=== PATIENT | female | born 1940 | race Caucasian/White ===

== ENCOUNTER → 2016-06-18 | Outpatient (CLI) | payer MEDICARE ==
[2016-06-18 10:39] LABS: Blood Urea Nitrogen 19 mg/dL (7-17); Non-African American GFR(MDRD) 56 (>60 ml/min/1.73 sqM)
--- NOTE | 2016-06-18 13:52 | MR ---
EXAMINATION TYPE: MR brain wo/w con DATE OF EXAM: 06/18/2016 11:23 AM COMPARISON: 07/07/2014 HISTORY: 76-year-old female disorder of binocular vision. TECHNIQUE: Multiplanar, multisequence images of the brain and brainstem were acquired before and aft er administration of 20 mL IV MultiHance. Diffusion weighted imaging is performed. FINDINGS: There is extensive artifact relating to the patient's aneurysm clipping with artifact centered in the region of the left upper [place]. Allowing for this artifact, no diffusion abnormality is identif ied. No evident mass, mass effect, midline shift, herniation, effacement of basal cisterns, or extra-axial fluid collection. The ventricles and sulci are age appropriate with mild generalized supratentorial volume loss. T2/FLAIR weighted sequences show moderate scattered bright white matter change in the subcortical and deep white matter of both cerebral hemispheres. No interval progression is seen. There is continued encephalomalacia and gliosis along the anterior left frontal lobe suggesting sequela of prior vascula r or traumatic insult. Midline structures demonstrate normal morphology. The craniocervical junction is normal. Post contrast images demonstrate no evidence of pathologic enhancement. Dural venous sinuses are pat ent. The visualized sinuses are clear and the globes are intact. IMPRESSION: 1. Prominent artifacts related to patient's prior aneurysm clipping in the region of the left [place]. 2. Mild age-related atrophy and stable chronic T2 bright white matter changes with moderate overall b urden likely relating to chronic small vessel ischemic disease. 3. Area of encephalomalacia and gliosis in the anterior left frontal lobe suggest prior vascular or t raumatic insult and is also unchanged. 4. No acute intracranial abnormality seen.
== END | disposition home or self-care (01) ==
LOC: RADMRIMAIN 09:42
PROVIDERS: ATTEND Family Medicine
DX: G31.1 Senile degeneration of brain, not elsewhere classified (principal); R90.82 White matter disease, unspecified; G93.89 Other specified disorders of brain
CPT/HCPCS: 82565; 84520; 70553; 36415; A9577

== ENCOUNTER → 2017-09-17 | Outpatient (CLI) | payer MEDICARE ==
--- NOTE | 2017-09-17 11:33 | CT ---
EXAMINATION TYPE: CT chest wo con DATE OF EXAM: 09/17/2017 COMPARISON: 03/05/2017 and 02/06/2013 HISTORY: Pneumonia. Shortness of breath. CT DLP: 854.0 mGycm. Automated Exposure Control for Dose Reduction was Utilized. TECHNIQUE: CT scan of the thorax is performed without IV contrast per high-resolution chest CT lyle col in supine and prone positions. FINDINGS: LUNGS: There is mild paraseptal and centrilobular emphysematous change most exaggerated in the lung a pices. There is interlobular septal thickening in a peripheral basilar distribution and early honeyco mbing posteriorly indicative of mild pulmonary fibrosis. There is no significant progression in degre e fibrosis from the exam of 02/06/2013. Focal consolidation is seen. Dependent shifting atelectasis is present in supine and prone imaging. N o focal mass is identified however evaluation for pulmonary nodules is limited on this high resolutio n. No bronchiectasis or peribronchial cuffing. MEDIASTINUM: Ascending thoracic aorta is mildly enlarged measuring 4.0 cm. Severe three-vessel christianson ry atheromatous plaquing is noted. Moderate thoracic atheromatous changes are identified. Lack of IV contrast is noted to limit evaluation for mediastinal and especially hilar adenopathy. There are no d efinitive greater than 1 cm hilar or mediastinal lymph nodes. No cardiomegaly or pericardial effusi on is seen. OTHER: Cholelithiasis is incidentally noted. Left mastectomy has been performed without reconstructio n. Benign dystrophic right breast calcification is incidentally seen. Moderate multilevel degenerativ e change of the thoracic spine is present. IMPRESSION: 1. Interstitial lung disease, pulmonary emphysema, and early fibrosis without significant progression from the prior of 2012. No new focal consolidation to suggest pneumonia. No new pulmonary mass. 2. Stable ascending thoracic aorta mild aneurysmal dilatation measuring 4.0 cm. 3. Extensive three-vessel coronary artery calcifications, a marker for coronary disease.
== END | disposition home or self-care (01) ==
LOC: RADCTMAIN 10:46
PROVIDERS: ATTEND Internal Medicine
DX: J84.9 Interstitial pulmonary disease, unspecified (principal); J43.9 Emphysema, unspecified; J84.10 Pulmonary fibrosis, unspecified; I71.2 Thoracic aortic aneurysm, without rupture; I25.10 Atherosclerotic heart disease of native coronary artery without angina pectoris
CPT/HCPCS: 71250

== ENCOUNTER 2021-02-26 10:55 | Emergency (ER) | payer MEDICARE ==
[2021-02-26 11:03] VITALS: RESP 18
[2021-02-26] MEDS ORDERED: SODIUM CHLORIDE 0.9% 1,000 ML IV STA (11:16)
[2021-02-26] MEDS ORDERED: SODIUM CHLORIDE 0.9% 500 ML 500 ML IV STA (11:16)
--- NOTE | 2021-02-26 11:57 | XR ---
EXAMINATION TYPE: XR chest 2V DATE OF EXAM: 02/26/2021 COMPARISON: 03/27/2019 TECHNIQUE: PA and lateral views submitted. HISTORY: Weakness FINDINGS: The lungs are clear and there is no pneumothorax, pleural effusion, or focal pneumonia. Coarsened in terstitium suggests chronic interstitial lung disease. Arthropathy of the shoulders. Biapical pleural thickening. Hypertrophic and degenerative changes of the spine. Hyperinflation suggests COPD. Mild e ctasia of the aortic arch with atherosclerotic changes. IMPRESSION: 1. Chronic appearing interstitial changes correlate for chronic interstitial lung disease such as pul monary fibrosis.
[2021-02-26 12:23] LABS: HCT 46.2 % (34.0-46.0); HGB 15.6 gm/dL (11.4-16.0); MCH 30.5 pg (25.0-35.0); MCHC 33.7 g/dL (31.0-37.0); MCV 90.6 fL (80.0-100.0); Mean Platelet Volume 9.8; Platelet Count 232 k/uL (150-450); RDW 13.6 % (11.5-15.5)
[2021-02-26 12:30] LABS: INR 1.2 (<1.2); Partial Thromboplastin Time 23.5 sec (22.0-30.0); Prothrombin Time 12.1 sec (9.0-12.0)
[2021-02-26 12:58] LABS: Large Platelets Present
[2021-02-26 13:24] LABS: Eosinophils # (M) 0.13 k/uL (0-0.7); Monocytes # (M) 0.38 k/uL (0-1.0); Neutrophils % (M) 63 %; Nucleated Red Blood Cells 0 /100 WBC (0-0); Total Cells Counted 200
[2021-02-26 13:28] LABS: Anisocytosis (M) Present; Poikilocytosis (M) Present
[2021-02-26 13:29] LABS: Neutrophils # (M) 8.06 k/uL (1.3-7.7)
[2021-02-26 13:30] LABS: Lymphocytes # (M) 4.35 k/uL (1.0-4.8)
[2021-02-26 13:33] LABS: WBC 12.8 k/uL (3.8-10.6)
[2021-02-26 13:45] LABS: Appearance,Urine Cloudy (Clear); Bacteria,Urine Occasional /hpf; Bilirubin,Urine Negative (Negative); Blood,Urine Negative (Negative); Color,Urine Yellow; Glucose,Urine (UA) 4+ (Negative); Hyaline Casts,Urine 13 /lpf (0-2); Ketones,Urine Negative (Negative); Leukocyte Esterase,Urine Moderate (Negative); Mucus,Urine Moderate /hpf; Nitrite,Urine Negative (Negative); Protein,Urine Trace (Negative); RBC,Urine 3 /hpf (0-5); Specific Gravity,Urine 1.027 (1.001-1.035); Squamous Epithelial Cell,Urine 3 /hpf (0-4); WBC,Urine 9 /hpf (0-5)
[2021-02-26 16:39] LABS: Albumin 3.4 g/dL (3.5-5.0); Calcium 8.3 mg/dL (8.4-10.2); Magnesium 1.7 mg/dL (1.6-2.3); Potassium 3.8 mmol/L (3.5-5.1); Total Bilirubin 0.8 mg/dL (0.2-1.3); Total Protein 6.6 g/dL (6.3-8.2)
--- NOTE | 2021-02-26 16:58 | ED ---
General Adult HPI - General Chief complaint: Weakness Stated complaint: Dehydration Time Seen by Provider: 02/26/21 10:58 Source: patient, family, RN notes reviewed Mode of arrival: ambulatory Limitations: no limitations - History of Present Illness Initial comments: 80-year-old female presents emergency Department from Dr. Stephenson office for possible dehydration. Patient was recently started on medication in which she believes she is having some mild side effects she's had increasing nausea, weight loss, does not feel well noted have a low blood pressure in office. Patient is otherwise chest pain shortness breath she had negative COVID-19 test a few days ago. Patient denies any dysuria hematuria no headache or dizziness. - Related Data Home Medications Medication Instructions Recorded Confirmed Allopurinol 100 mg PO DAILY 12/07/13 02/26/21 HYDROcodone/APAP 7.5-325MG [[place] 1 tab PO TID PRN 12/07/13 02/26/21 7.5] Levothyroxine Sodium [Synthroid] 100 mcg PO DAILY 12/07/13 02/26/21 Lisinopril-Hctz 20-25 mg 1 tab PO DAILY 12/07/13 02/26/21 [Zestoretic 20-25] Aspirin EC [Ecotrin Low Dose] 81 mg PO DAILY 02/26/21 02/26/21 Gabapentin 800 mg PO TID 02/26/21 02/26/21 Glucosamine/[place] A Sod [Osteo 2 tab PO DAILY 02/26/21 02/26/21 Bi-Flex Caplet] Multivitamins, Thera [Multivitamin 1 tab PO DAILY 02/26/21 02/26/21 (formulary)] Rosuvastatin [Crestor] 10 mg PO DAILY 02/26/21 02/26/21 Semaglutide [Rybelsus] 3 mg PO DAILY 02/26/21 02/26/21 Ubidecarenone [Co Q-10] 300 mg PO DAILY 02/26/21 02/26/21 Vitamin B Complex 1 cap PO DAILY 02/26/21 02/26/21 Allergies Allergy/AdvReac Type Severity Reaction Status Date / Time No Known Allergies Allergy Verified 02/26/21 13:26 Review of Systems ROS Statement: Those systems with pertinent positive or pertinent negative responses have been documented in the HPI. ROS Other: All systems not noted in ROS Statement are negative. Past Medical History Past Medical History: Diabetes Mellitus, Hyperlipidemia, Hypertension, Thyroid Disorder Past Surgical History: Cholecystectomy Additional Past Surgical History / Comment(s): aneursym repair Smoking Status: Never smoker Past Alcohol Use History: None Reported Past Drug Use History: None Reported General Exam Limitations: no limitations General appearance: alert, in no apparent distress Head exam: Present: atraumatic, normocephalic, normal inspection Eye exam: Present: normal appearance, PERRL, EOMI. Absent: scleral icterus, conjunctival injection, periorbital swelling ENT exam: Present: normal exam, normal oropharynx, mucous membranes moist Neck exam: Present: normal inspection, full ROM. Absent: tenderness, meningismus, lymphadenopathy Respiratory exam: Present: normal lung sounds bilaterally. Absent: respiratory distress, wheezes, rales, rhonchi, stridor Cardiovascular Exam: Present: regular rate, normal rhythm, normal heart sounds. Absent: systolic murmur, diastolic murmur, rubs, gallop, clicks GI/Abdominal exam: Present: soft, normal bowel sounds. Absent: distended, tenderness, guarding, rebound, rigid Course Vital Signs 02/26/21 02/26/21 02/26/21 10:56 12:45 14:00 Temperature 99.4 F 99.2 F Pulse Rate 97 80 86 Respiratory 18 18 18 Rate Blood Pressure 91/61 103/57 107/63 O2 Sat by Pulse 96 98 98 Oximetry 02/26/21 02/26/21 15:02 16:06 Temperature Pulse Rate 84 82 Respiratory 18 18 Rate Blood Pressure 114/63 109/53 O2 Sat by Pulse 97 98 Oximetry Medical Decision Making - Medical Decision Making I did update Dr. Worrell on lab results and patient's fluid hydration. Patient is greatly improved both pressure has improved. Patient we discharged in stable condition with follow-up with in one week patient is to cut her Rybaleus medication and half and if she is unable to tolerate this she will discontinue medication - Lab Data Result diagrams: 02/26/21 11:34 02/26/21 16:09 Lab Results 02/26/21 02/26/21 02/26/21 Range/Units 11:34 11:34 11:34 WBC 12.8 H (3.8-10.6) k/uL RBC 5.10 (3.80-5.40) m/uL Hgb 15.6 (11.4-16.0) gm/dL Hct 46.2 H (34.0-46.0) % MCV 90.6 (80.0-100.0) fL MCH 30.5 (25.0-35.0) pg MCHC 33.7 (31.0-37.0) g/dL RDW 13.6 (11.5-15.5) % Plt Count 232 (150-450) k/uL MPV 9.8 Neutrophils % (Manual) 63 % Band Neuts % (Manual) Not Reportable Lymphocytes % (Manual) 34 % Monocytes % (Manual) 3 % Eosinophils % (Manual) 1 % Neutrophils # (Manual) 8.06 H (1.3-7.7) k/uL Lymphocytes # (Manual) 4.35 (1.0-4.8) k/uL Monocytes # (Manual) 0.38 (0-1.0) k/uL Eosinophils # (Manual) 0.13 (0-0.7) k/uL Nucleated RBCs 0 (0-0) /100 WBC Manual Slide Review Performed Large Platelets Present Poikilocytosis (manual Present Anisocytosis (manual) Present PT 12.1 H (9.0-12.0) sec INR 1.2 H (<1.2) APTT 23.5 (22.0-30.0) sec Sodium (137-145) mmol/L Potassium (3.5-5.1) mmol/L Chloride (98-107) mmol/L Carbon Dioxide (22-30) mmol/L Anion Gap mmol/L BUN (7-17) mg/dL Creatinine (0.52-1.04) mg/dL Est GFR (CKD-EPI)AfAm (>60 ml/min/1.73 sqM) Est GFR (CKD-EPI)NonAf (>60 ml/min/1.73 sqM) Glucose (74-99) mg/dL Plasma Lactic Acid [place] (0.7-2.0) mmol/L Calcium (8.4-10.2) mg/dL Magnesium (1.6-2.3) mg/dL Total Bilirubin (0.2-1.3) mg/dL AST (14-36) U/L ALT (4-34) U/L Alkaline Phosphatase (38-126) U/L Troponin I (0.000-0.034) ng/mL Total Protein (6.3-8.2) g/dL Albumin (3.5-5.0) g/dL Urine Color Yellow Urine Appearance Cloudy H (Clear) Urine pH 5.0 (5.0-8.0) Ur Specific [place] 1.027 (1.001-1.035) Urine Protein Trace H (Negative) Urine Glucose (UA) 4+ H (Negative) Urine Ketones Negative (Negative) Urine Blood Negative (Negative) Urine Nitrite Negative (Negative) Urine Bilirubin Negative (Negative) Urine Urobilinogen 2.0 (<2.0) mg/dL Ur Leukocyte Esterase Moderate H (Negative) Urine RBC 3 (0-5) /hpf Urine WBC 9 H (0-5) /hpf Ur Squamous Epith Cells 3 (0-4) /hpf Urine Bacteria Occasional H (None) /hpf Hyaline Casts 13 H (0-2) /lpf Urine Mucus Moderate H (None) /hpf Coronavirus (PCR) (Not Detectd) 02/26/21 02/26/21 02/26/21 Range/Units 11:34 13:08 13:08 WBC (3.8-10.6) k/uL RBC (3.80-5.40) m/uL Hgb (11.4-16.0) gm/dL Hct (34.0-46.0) % MCV (80.0-100.0) fL MCH (25.0-35.0) pg MCHC (31.0-37.0) g/dL RDW (11.5-15.5) % Plt Count (150-450) k/uL MPV Neutrophils % (Manual) % Band Neuts % (Manual) Lymphocytes % (Manual) % Monocytes % (Manual) % Eosinophils % (Manual) % Neutrophils # (Manual) (1.3-7.7) k/uL Lymphocytes # (Manual) (1.0-4.8) k/uL Monocytes # (Manual) (0-1.0) k/uL Eosinophils # (Manual) (0-0.7) k/uL Nucleated RBCs (0-0) /100 WBC Manual Slide Review Large Platelets Poikilocytosis (manual Anisocytosis (manual) PT (9.0-12.0) sec INR (<1.2) APTT (22.0-30.0) sec Sodium (137-145) mmol/L Potassium (3.5-5.1) mmol/L Chloride (98-107) mmol/L Carbon Dioxide (22-30) mmol/L Anion Gap mmol/L BUN (7-17) mg/dL Creatinine (0.52-1.04) mg/dL Est GFR (CKD-EPI)AfAm (>60 ml/min/1.73 sqM) Est GFR (CKD-EPI)NonAf (>60 ml/min/1.73 sqM) Glucose (74-99) mg/dL Plasma Lactic Acid [place] (0.7-2.0) mmol/L Calcium (8.4-10.2) mg/dL Magnesium (1.6-2.3) mg/dL Total Bilirubin (0.2-1.3) mg/dL AST (14-36) U/L ALT (4-34) U/L Alkaline Phosphatase (38-126) U/L Troponin I (0.000-0.034) ng/mL Total Protein (6.3-8.2) g/dL Albumin (3.5-5.0) g/dL Urine Color Urine Appearance (Clear) Urine pH (5.0-8.0) Ur Specific [place] (1.001-1.035) Urine Protein (Negative) Urine Glucose (UA) (Negative) Urine Ketones (Negative) Urine Blood (Negative) Urine Nitrite (Negative) Urine Bilirubin (Negative) Urine Urobilinogen (<2.0) mg/dL Ur Leukocyte Esterase (Negative) Urine RBC (0-5) /hpf Urine WBC (0-5) /hpf Ur Squamous Epith Cells (0-4) /hpf Urine Bacteria (None) /hpf Hyaline Casts (0-2) /lpf Urine Mucus (None) /hpf Coronavirus (PCR) Not Detected (Not Detectd) 02/26/21 02/26/21 02/26/21 Range/Units 16:09 16:09 16:09 WBC (3.8-10.6) k/uL RBC (3.80-5.40) m/uL Hgb (11.4-16.0) gm/dL Hct (34.0-46.0) % MCV (80.0-100.0) fL MCH (25.0-35.0) pg MCHC (31.0-37.0) g/dL RDW (11.5-15.5) % Plt Count (150-450) k/uL MPV Neutrophils % (Manual) % Band Neuts % (Manual) Lymphocytes % (Manual) % Monocytes % (Manual) % Eosinophils % (Manual) % Neutrophils # (Manual) (1.3-7.7) k/uL Lymphocytes # (Manual) (1.0-4.8) k/uL Monocytes # (Manual) (0-1.0) k/uL Eosinophils # (Manual) (0-0.7) k/uL Nucleated RBCs (0-0) /100 WBC Manual Slide Review Large Platelets Poikilocytosis (manual Anisocytosis (manual) PT (9.0-12.0) sec INR (<1.2) APTT (22.0-30.0) sec Sodium 132 L (137-145) mmol/L Potassium 3.8 (3.5-5.1) mmol/L Chloride 99 (98-107) mmol/L Carbon Dioxide 25 (22-30) mmol/L Anion Gap 8 mmol/L BUN 29 H (7-17) mg/dL Creatinine 1.46 H (0.52-1.04) mg/dL Est GFR (CKD-EPI)AfAm 40 (>60 ml/min/1.73 sqM) Est GFR (CKD-EPI)NonAf 34 (>60 ml/min/1.73 sqM) Glucose 94 (74-99) mg/dL Plasma Lactic Acid [place] 1.5 (0.7-2.0) mmol/L Calcium 8.3 L (8.4-10.2) mg/dL Magnesium 1.7 (1.6-2.3) mg/dL Total Bilirubin 0.8 (0.2-1.3) mg/dL AST 72 H (14-36) U/L ALT 72 H (4-34) U/L Alkaline Phosphatase 52 (38-126) U/L Troponin I <0.012 (0.000-0.034) ng/mL Total Protein 6.6 (6.3-8.2) g/dL Albumin 3.4 L (3.5-5.0) g/dL Urine Color Urine Appearance (Clear) Urine pH (5.0-8.0) Ur Specific [place] (1.001-1.035) Urine Protein (Negative) Urine Glucose (UA) (Negative) Urine Ketones (Negative) Urine Blood (Negative) Urine Nitrite (Negative) Urine Bilirubin (Negative) Urine Urobilinogen (<2.0) mg/dL Ur Leukocyte Esterase (Negative) Urine RBC (0-5) /hpf Urine WBC (0-5) /hpf Ur Squamous Epith Cells (0-4) /hpf Urine Bacteria (None) /hpf Hyaline Casts (0-2) /lpf Urine Mucus (None) /hpf Coronavirus (PCR) (Not Detectd) Disposition Clinical Impression: Dehydration, Medication adverse effect Disposition: HOME SELF-CARE Condition: Stable Instructions (If sedation given, give patient instructions): Dehydration (ED) Additional Instructions: Please return to the Emergency Department if symptoms worsen or any other concerns. Is patient prescribed a controlled substance at d/c from ED?: No Referrals: Felix Worrell MD [Primary Care Provider] - 1-2 days Time of Disposition: 16:58
[2021-02-26 17:23] VITALS: BP 112/63; PULSE 86; TEMP 98.1
== END 2021-02-26 17:02 | disposition home or self-care (01) ==
LOC: EC 10:55
DX: E86.0 Dehydration (principal); T50.995A Adverse effect of other drugs, medicaments and biological substances, initial encounter; E11.9 Type 2 diabetes mellitus without complications; E78.5 Hyperlipidemia, unspecified; I10 Essential (primary) hypertension; E07.9 Disorder of thyroid, unspecified; Z20.822 Contact with and (suspected) exposure to COVID-19; Z79.82 Long term (current) use of aspirin; Z90.49 Acquired absence of other specified parts of digestive tract
CPT/HCPCS: 36415; 71046; 80053; 81001; 83605; 83735; 84484; 85025; 85610; 85730; 87635; 93005; 96360; 99284

== ENCOUNTER → 2022-02-10 | Outpatient (CLI) | payer MEDICARE ==
--- NOTE | 2022-02-16 15:01 | MM ---
Reason for Exam: Additional evaluation requested from prior study. Last screening mammogram was performed 12 month(s) ago. Patient History: Menarche at age 13. First Full-Term at age 24. Hysterectomy at age 53. Postmenopausal. Breast cancer, left, age 70. Previous chemotherapy at age 70. Estrogen for 6 years from age 53 until age 59. 02/27/2011, Malignant Core Biopsy on the left side. 01/09/2008, Cancelled Left US Needle Biopsy on the left side. Sister had breast cancer, age 69. Prior Study Comparison: 01/16/2011 Bilateral Screening Mammogram, [facility]. 01/19/2012 Right Diagnostic Mammogram, [facility]. 01/19/2013 Right Diagnostic Mammogram, [facility]. 02/05/2020 Right MG 3D diag mammo w/cad RT - 2, Unknown. 02/05/2021 Right MG 3D diag mammo w/cad RT - 2, Unknown. Tissue Density: Right: There are scattered fibroglandular densities. Findings: Analyzed By CAD. Unchanged central asymmetric density on the MLO view. 2 microclips from prior biopsies. No significant change from prior exams. Overall Assessment: Benign, BI-RAD 2 Management: Screening Mammogram of the right breast in 1 year. 1. Patient should continue monthly self breast exams. 2. A clinical breast exam by your physician is recommended on an annual basis. 3. This exam should not preclude additional follow-up of suspicious palpable abnormalities. Results were given to the patient verbally at the time of exam. Electronically signed and approved by: Harmeet Monteiro M.D. Radiologist
== END | disposition home or self-care (01) ==
LOC: RADMAMWWP 12:58
PROVIDERS: ATTEND Internal Medicine Hematology & Oncology
DX: R92.8 Other abnormal and inconclusive findings on diagnostic imaging of breast (principal); Z85.3 Personal history of malignant neoplasm of breast; Z78.0 Asymptomatic menopausal state; Z80.3 Family history of malignant neoplasm of breast; Z98.890 Other specified postprocedural states
CPT/HCPCS: 77065; G0279; 77061

== ENCOUNTER → 2023-02-11 | Outpatient (CLI) | payer MEDICARE ==
--- NOTE | 2023-02-11 13:22 | MM ---
Reason for Exam: Hx of breast cancer, mastectomy. Last screening mammogram was performed 12 month(s) ago. Patient History: Menarche at age 13. First Full-Term at age 24. Hysterectomy at age 53. Postmenopausal. Breast cancer, left, age 70. Previous chemotherapy at age 70. Estrogen for 6 years from age 53 until age 59. 03/13/2011, Mastectomy on the Left side. 02/27/2011, Malignant Core Biopsy on the left side. 01/09/2008, Cancelled Left US Needle Biopsy on the left side. Sister had breast cancer, age 69. Prior Study Comparison: 02/05/2020 Right MG 3D diag mammo w/cad RT - 2, Unknown. 02/05/2021 Right MG 3D diag mammo w/cad RT - 2, Unknown. 02/10/2022 Right MG 3D diag mammo w/cad RT, [facility]. Tissue Density: Right: There are scattered fibroglandular densities. Findings: Analyzed By CAD. Microclip right breast from prior biopsy. Centrally located area of asymmetric density remains unchanged. No significant change from prior exams. Overall Assessment: Benign, BI-RAD 2 Management: Screening Mammogram of the right breast in 1 year. Results were given to the patient verbally at the time of exam. Patient should continue monthly self-breast exams. A clinical breast exam by your physician is recommended on an annual basis. This exam should not preclude additional follow-up of suspicious palpable abnormalities. Electronically signed and approved by: Harmeet Monteiro M.D. Radiologist
== END | disposition home or self-care (01) ==
LOC: RADMAMWWP 12:43
PROVIDERS: ATTEND Internal Medicine Hematology & Oncology
DX: C50.112 Malignant neoplasm of central portion of left female breast (principal); R92.321 Mammographic fibroglandular density, right breast; G60.0 Hereditary motor and sensory neuropathy; M25.529 Pain in unspecified elbow; E03.9 Hypothyroidism, unspecified; I10 Essential (primary) hypertension; Z17.1 Estrogen receptor negative status [ER-]; Z71.3 Dietary counseling and surveillance; Z80.3 Family history of malignant neoplasm of breast; Z78.0 Asymptomatic menopausal state
CPT/HCPCS: 77061; 77065

== ENCOUNTER → 2023-09-21 | Outpatient (CLI) | payer MEDICARE ==
--- NOTE | 2023-11-16 12:04 | US ---
Patient: Sania Samson Ordering Physician: Unknown, Unknown ID: [id number] Phone, Pager: Phone: N/A P ager: N/A : 1940 Age/Gender: 83Y, F Primary Location: N/A Procedure: US venous doppler duplex LE LT Study Date: 09/21/2023 10:31:00 AM EXAMINATION TYPE: US venous doppler duplex LE LT DATE OF EXAM: 10/09/2023 3:39 PM COMPARISON: NONE CLINICAL INDICATION: Left leg swelling SIDE PERFORMED: Left TECHNIQUE: The lower extremity deep venous system is examined utilizing real time linear array sonog monty with graded compression, doppler sonography and color-flow sonography. VESSELS IMAGED: Common Femoral Vein Deep Femoral Vein Greater Saphenous Vein * Femoral Vein Popliteal Vein Small Saphenous Vein * Proximal Calf Veins (* superficial vessels) Left Leg: Negative for DVT IMPRESSION: Grayscale, color doppler, spectral doppler imaging performed of the deep veins of the lo wer extremities. There is normal flow, compressibility, vascular waveforms.
== END | disposition home or self-care (01) ==
LOC: RADUSWWP 10:13
PROVIDERS: ATTEND Internal Medicine Hematology & Oncology
DX: M79.89 Other specified soft tissue disorders (principal)

== ENCOUNTER → 2023-12-27 | Outpatient (CLI) | payer MEDICARE ==
--- NOTE | 2023-12-27 10:37 | US ---
EXAMINATION TYPE: US arterial LE single level DATE OF EXAM: 12/27/2023 10:13 AM COMPARISONS: None. CLINICAL INDICATION: Female, 83 years old with history of I73.9 PAD; Leg pain, more on left side with discoloration TECHNIQUE: Systolic pressures were taken of the upper and lower extremity arteries with ankle-brachia l indices and toe brachial indices calculated bilaterally. History of: Smoker: Previous Hypertension: Yes Diabetic: Yes Hyperlipidemia: Yes TIA/CVA: No Previous Vascular Surgery: No CAD: No [place]: No Vascular Ulcers: No Claudication: No Gangrene: No FINDINGS: Doppler Waveforms: Right: Biphasic Left: Biphasic Brachial Artery systolic pressure: Right: 125 Left: Deferred due to left mastectomy Posterior Tibial artery systolic pressure: Right: 119 Left: 101 Dorsalis Pedis artery systolic pressure: Right: 116 Left: 116 Toe artery systolic pressure: Right: 70 Left: 62 Ankle-Brachial Indices: Right: 1.0 Left: 0.9 (Vessel hardening > 1.4; Normal 0.9 - 1.4, Moderate 0.7 - 0.9, Severe 0.5-0.7) Toe Brachial Indices: Right: 0.6 Left: 0.5 (Normal > 0.6; Mild 0.35 - 0.59, Moderate 0.12 - 0.34, Severe <0.12) Biphasic waveforms are present. IMPRESSION: 1. Mild narrowing of bilateral digital arteries distally. [facility], , 12/27/2023 10:35 AM
== END | disposition home or self-care (01) ==
LOC: RADUSWWP 09:42
PROVIDERS: ATTEND Internal Medicine
DX: I73.9 Peripheral vascular disease, unspecified (principal); I77.1 Stricture of artery; M79.605 Pain in left leg
CPT/HCPCS: 93922

== ENCOUNTER → 2024-02-14 | Outpatient (CLI) | payer MEDICARE ==
--- NOTE | 2024-02-14 15:53 | MM ---
Reason for Exam: Hx of breast cancer, mastectomy. Last screening mammogram was performed 12 month(s) ago. Patient History: Menarche at age 13. First Full-Term at age 24. Hysterectomy at age 53. Postmenopausal. Breast cancer, left, age 70. Previous chemotherapy at age 70. Estrogen for 6 years from age 53 until age 59. 03/13/2011, Mastectomy on the Left side. 02/27/2011, Malignant Core Biopsy on the left side. 01/09/2008, Cancelled Left US Needle Biopsy on the left side. Sister had breast cancer, age 69. Prior Study Comparison: 02/05/2021 Right MG 3D diag mammo w/cad RT - 2, Unknown. 02/10/2022 Right MG 3D diag mammo w/cad RT, [facility]. 02/11/2023 Right MG 3D diag mammo w/cad RT, [facility]. Tissue Density: Right: There are scattered areas of fibroglandular density. Findings: Analyzed By CAD. The pattern is symmetrical. Abdomen appears stable. Benign calcifications in the outer right breast. Benign vascular calcifications. No suspicious groups of microcalcifications, spiculated or lobular masses, architectural distortion or other secondary signs of malignancy are mammographically apparent. Overall Assessment: Benign, BI-RAD 2 Management: Screening Mammogram of the right breast in 1 year. A negative mammogram report should not preclude additional follow up of suspicious palpable abnormalities. Patient should continue monthly self breast exam. A clinical breast exam by your physician is recommended on an annual basis and results should be correlated with mammographic findings. Note on Tasha scores and lifetime risk: 1. A Tasha score greater than 3% is considered moderate risk. If this is the case, consider specialist referral to assess eligibility for a risk reducing agent. 2. If overall lifetime risk for the development of breast cancer is 20% or higher, the patient may qualify for future screening with alternating mammogram and breast MRI. [facility], , 02/14/2024 2:55 PM. Electronically signed and approved by: Tarik Bangura D.O. Radiologis
== END | disposition home or self-care (01) ==
LOC: RADMAMWWP 14:28
PROVIDERS: ATTEND Internal Medicine Hematology & Oncology
DX: C50.112 Malignant neoplasm of central portion of left female breast (principal); G60.0 Hereditary motor and sensory neuropathy; M25.529 Pain in unspecified elbow; Z78.0 Asymptomatic menopausal state; Z85.3 Personal history of malignant neoplasm of breast; Z80.3 Family history of malignant neoplasm of breast; R92.321 Mammographic fibroglandular density, right breast
CPT/HCPCS: 77061; 77065

== ENCOUNTER 2024-04-02 10:40 | Inpatient (IN) | payer MEDICARE ==
--- NOTE | 2024-04-02 11:38 | ED ---
General Adult HPI - General Chief complaint: Shortness of Breath Stated complaint: NOVA Time Seen by Provider: 04/02/24 11:25 Source: patient, RN notes reviewed Mode of arrival: wheelchair Limitations: no limitations - History of Present Illness Initial comments: 83-year-old female presents to the emergency department for evaluation of shortness of breath. Patient states that this has been going on for around 1 week. She states that it is worse with exertion. She denies any lower extremity swelling at this time. She does state that she had some swelling about 2 months ago and had ultrasounds of her lower extremities performed at that time. She denies any recent fever, chills. Denies chest pain. She does not use supplemental oxygen at home. - Related Data Home Medications Medication Instructions Recorded Confirmed HYDROcodone/APAP 7.5-325MG [[place] 1 tab PO TID PRN 12/07/13 02/26/21 7.5] Levothyroxine Sodium [Synthroid] 100 mcg PO DAILY 12/07/13 02/26/21 Lisinopril-Hctz 20-25 mg 1 tab PO DAILY 12/07/13 02/26/21 [Zestoretic 20-25] allopurinoL [Allopurinol] 100 mg PO DAILY 12/07/13 02/26/21 Aspirin EC [Ecotrin Low Dose] 81 mg PO DAILY 02/26/21 02/26/21 Gabapentin 800 mg PO TID 02/26/21 02/26/21 Glucosamine/[place] A Sod [Osteo 2 tab PO DAILY 02/26/21 02/26/21 Bi-Flex Caplet] Multivitamins, Thera [Multivitamin 1 tab PO DAILY 02/26/21 02/26/21 (formulary)] Rosuvastatin [Crestor] 10 mg PO DAILY 02/26/21 02/26/21 Semaglutide [Rybelsus] 3 mg PO DAILY 02/26/21 02/26/21 Ubidecarenone [Co Q-10] 300 mg PO DAILY 02/26/21 02/26/21 Vitamin B Complex 1 cap PO DAILY 02/26/21 02/26/21 Allergies Allergy/AdvReac Type Severity Reaction Status Date / Time No Known Allergies Allergy Verified 04/02/24 10:47 Review of Systems ROS Statement: Those systems with pertinent positive or pertinent negative responses have been documented in the HPI. ROS Other: All systems not noted in ROS Statement are negative. Past Medical History Past Medical History: Asthma, Diabetes Mellitus, Hyperlipidemia, Hypertension, Thyroid Disorder Past Surgical History: Cholecystectomy Additional Past Surgical History / Comment(s): aneursym repair Smoking Status: Never smoker Past Alcohol Use History: None Reported Past Drug Use History: None Reported General Exam Limitations: no limitations Course Vital Signs 04/02/24 04/02/24 04/02/24 10:45 10:57 12:03 Temperature 97.9 F Pulse Rate 82 72 Respiratory 16 18 18 Rate Blood Pressure 122/77 116/72 O2 Sat by Pulse 93 L 97 Oximetry 04/02/24 15:18 Temperature Pulse Rate 72 Respiratory 17 Rate Blood Pressure 157/81 O2 Sat by Pulse 98 Oximetry Medical Decision Making - Medical Decision Making Was pt. sent in by a medical professional or institution (, PA, ADMISSIONS RECRUITER, urgent care, hospital, or custodial...) When possible be specific @ -No Did you speak to anyone other than the patient for history (EMS, parent, family, police, friend...)? What history was obtained from this source @ -Patients granddaughter Did you review nursing and triage notes (agree or disagree)? Why? @ -I reviewed and agree with nursing and triage notes Were old charts reviewed (outside hosp., previous admission, EMS record, old EKG, old radiological studies, urgent care reports/EKG's, custodial records)? Report findings @ -No old charts were reviewed Differential Diagnosis (chest pain, altered mental status, abdominal pain women, abdominal pain men, vaginal bleeding, weakness, fever, dyspnea, syncope, headache, dizziness, GI bleed, back pain, seizure, CVA, palpatations, mental he alth, musculoskeletal)? @ -Differential Dyspnea: Coronary syndrome, arrhythmia, tamponade, asthma, COPD, pulmonary embolism, pneumonia, pneumothorax, pulmonary effusion, anaphylaxis, diabetic ketoacidosis, flailed chest, pulmonary contusion, diaphragmatic rupture, anemia, neuromuscular, this is not meant to be an all-inclusive list. EKG interpreted by me (3pts min.). @ -EKG at 1059 shows sinus rhythm rate 78, IL 165, QRS 89, QTQTc [id number] X-rays interpreted by me (1pt min.). @ -Chest x-ray shows large right-sided pleural effusion CT interpreted by me (1pt min.). @ -CT chest angio for PE shows no evidence of PE, large right-sided pleural effusion, thickened nodular appearance to the pleura on the right, mediastinal lymphadenopathy U/S interpreted by me (1pt. min.). @ -None done What testing was considered but not performed or refused? (CT, X-rays, U/S, labs)? Why? @ -None What meds were considered but not given or refused? Why? @ -None Did you discuss the management of the patient with other professionals (professionals i.e. DrPedro, PA, ADMISSIONS RECRUITER, lab, RT, psych nurse, health care social worker, web ui software engineer, teacher, conservation officer, special education case manager)? Give summary @ -Management discussed with Dr. Worrell who is accepting of the admission Was smoking cessation discussed for >3mins.? @ -No Was critical care preformed (if so, how long)? @ -No Were there social determinants of health that impacted care today? How? (Homelessness, low income, unemployed, alcoholism, drug addiction, transportation, low edu. Level, literacy, decrease access to med. care, long-term, rehab)? @ -No Was there de-escalation of care discussed even if they declined (Discuss DNR or withdrawal of care, Hospice)? DNR status @ -No What co-morbidities impacted this encounter? (DM, HTN, Smoking, COPD, CAD, Cancer, CVA, ARF, Chemo, Hep., AIDS, mental health diagnosis, sleep apnea, morbid obesity)? @ -None Was patient admitted / discharged? Hospital course, mention meds given and route, prescriptions, significant lab abnormalities, going to OR and other pertinent info. @ -Admitted. Patient presented to the emergency department for evaluation of shortness of breath.Laboratory studies obtained revealing no significant leuk ocytosis, hemoglobin 16.5; PT/INR within normal limits D-dimer elevated at 1.56; CMP on actionable at this time, negative troponin. Negative for COVID, influenza, RSV. Chest x-ray obtained revealing a large right-sided pleural effusion. CT of the chest was obtained because of the elevated D-dimer. Patient has a large pleural effusion on the right with nodular areas in the pleura and mediastinal lymphadenopathy. Patient will be admitted to the hospital. Case was discussed with Dr. Worrell who is accepting of the admission. Case discussed with Dr. Aiken Undiagnosed new problem with uncertain prognosis? @ -yes Drug Therapy requiring intensive monitoring for toxicity (Heparin, Nitro, Insu rad, Cardizem)? @ -No Were any procedures done? @ -No Diagnosis/symptom? @ -Pleural effusion, mediastinal lymphadenopathy Acute, or Chronic, or Acute on Chronic? @ -Acute Uncomplicated (without systemic symptoms) or Complicated (systemic symptoms)? @ -Complicated Side effects of treatment? @ -No Exacerbation, Progression, or Severe Exacerbation? @ -No Poses a threat to life or bodily function? How? (Chest pain, [place], [place], pneumonia, PE, COPD, DKA, ARF, appy, cholecystitis, CVA, Diverticulitis, Homicidal, Suicidal, threat to staff... and all critical care pts) @ -Pleural effusion - Lab Data Result diagrams: 04/02/24 11:46 04/02/24 11:46 Lab Results 04/02/24 04/02/24 04/02/24 Range/Units 11:46 11:46 11:46 WBC 10.4 (3.8-10.6) k/uL RBC 5.42 H (3.80-5.40) m/uL Hgb 16.5 H (11.4-16.0) gm/dL Hct 50.8 H (34.0-46.0) % MCV 93.8 (80.0-100.0) fL MCH 30.5 (25.0-35.0) pg MCHC 32.5 (31.0-37.0) g/dL RDW 13.3 (11.5-15.5) % Plt Count 317 (150-450) k/uL MPV 8.5 Neutrophils % 56 % Lymphocytes % 29 % Monocytes % 6 % Eosinophils % 5 % Basophils % 1 % Neutrophils # 5.8 (1.3-7.7) k/uL Lymphocytes # 3.0 (1.0-4.8) k/uL Monocytes # 0.7 (0-1.0) k/uL Eosinophils # 0.5 (0-0.7) k/uL Basophils # 0.1 (0-0.2) k/uL PT 11.9 (10.0-12.5) sec INR 1.1 (<1.2) APTT 24.1 (22.0-30.0) sec D-Dimer 1.56 H (<0.60) mg/L FEU Sodium 140 (137-145) mmol/L Potassium 4.2 (3.5-5.1) mmol/L Chloride 99 (98-107) mmol/L Carbon Dioxide 30 (22-30) mmol/L Anion Gap 11 mmol/L BUN 18 H (7-17) mg/dL Creatinine 0.95 (0.52-1.04) mg/dL Est GFR (CKD-EPI)AfAm 65 (>60 ml/min/1.73 sqM) Est GFR (CKD-EPI)NonAf 57 (>60 ml/min/1.73 sqM) Glucose 86 (74-99) mg/dL Calcium 9.4 (8.4-10.2) mg/dL Total Bilirubin 0.8 (0.2-1.3) mg/dL AST 34 (14-36) U/L ALT 21 (4-34) U/L Alkaline Phosphatase 49 (38-126) U/L Troponin I (0.000-0.034) ng/mL Total Protein 7.5 (6.3-8.2) g/dL Albumin 4.2 (3.5-5.0) g/dL Influenza Type A (PCR) (Not Detectd) Influenza Type B (PCR) (Not Detectd) RSV (PCR) (Not Detectd) SARS-CoV-2 (PCR) (Not Detectd) 04/02/24 04/02/24 Range/Units 11:46 11:46 WBC (3.8-10.6) k/uL RBC (3.80-5.40) m/uL Hgb (11.4-16.0) gm/dL Hct (34.0-46.0) % MCV (80.0-100.0) fL MCH (25.0-35.0) pg MCHC (31.0-37.0) g/dL RDW (11.5-15.5) % Plt Count (150-450) k/uL MPV Neutrophils % % Lymphocytes % % Monocytes % % Eosinophils % % Basophils % % Neutrophils # (1.3-7.7) k/uL Lymphocytes # (1.0-4.8) k/uL Monocytes # (0-1.0) k/uL Eosinophils # (0-0.7) k/uL Basophils # (0-0.2) k/uL PT (10.0-12.5) sec INR (<1.2) APTT (22.0-30.0) sec D-Dimer (<0.60) mg/L FEU Sodium (137-145) mmol/L Potassium (3.5-5.1) mmol/L Chloride (98-107) mmol/L Carbon Dioxide (22-30) mmol/L Anion Gap mmol/L BUN (7-17) mg/dL Creatinine (0.52-1.04) mg/dL Est GFR (CKD-EPI)AfAm (>60 ml/min/1.73 sqM) Est GFR (CKD-EPI)NonAf (>60 ml/min/1.73 sqM) Glucose (74-99) mg/dL Calcium (8.4-10.2) mg/dL Total Bilirubin (0.2-1.3) mg/dL AST (14-36) U/L ALT (4-34) U/L Alkaline Phosphatase (38-126) U/L Troponin I <0.012 (0.000-0.034) ng/mL Total Protein (6.3-8.2) g/dL Albumin (3.5-5.0) g/dL Influenza Type A (PCR) Not Detected (Not Detectd) Influenza Type B (PCR) Not Detected (Not Detectd) RSV (PCR) Not Detected (Not Detectd) SARS-CoV-2 (PCR) Not Detected (Not Detectd) Disposition Clinical Impression: Pleural effusion, Mediastinal lymphadenopathy Disposition: ADMITTED IP TO THIS HOSP Condition: Stable Is patient prescribed a controlled substance at d/c from ED?: No Referrals: Felix Worrell MD [Primary Care Provider] - 1-2 days
[2024-04-02 11:57] LABS: Basophils # (A) 0.1 k/uL (0-0.2); Basophils % (A) 1 %; Eosinophils # (A) 0.5 k/uL (0-0.7); Eosinophils % (A) 5 %; HCT 50.8 % (34.0-46.0); HGB 16.5 gm/dL (11.4-16.0); Lymphocytes % (A) 29 %; MCH 30.5 pg (25.0-35.0); MCHC 32.5 g/dL (31.0-37.0); MCV 93.8 fL (80.0-100.0); Mean Platelet Volume 8.5; Monocytes # (A) 0.7 k/uL (0-1.0); Monocytes % (A) 6 %; Neutrophils # (A) 5.8 k/uL (1.3-7.7); Neutrophils % (A) 56 %; Platelet Count 317 k/uL (150-450); RBC 5.42 m/uL (3.80-5.40); RDW 13.3 % (11.5-15.5); WBC 10.4 k/uL (3.8-10.6)
[2024-04-02 12:20] LABS: Potassium 4.2 mmol/L (3.5-5.1)
[2024-04-02 12:21] LABS: ALT 21 U/L (4-34); AST 34 U/L (14-36); African American GFR (CKD) 65 (>60 ml/min/1.73 sqM); Albumin 4.2 g/dL (3.5-5.0); Alkaline Phosphatase 49 U/L (38-126); Anion Gap 11 mmol/L; Blood Urea Nitrogen 18 mg/dL (7-17); Calcium 9.4 mg/dL (8.4-10.2); Carbon Dioxide 30 mmol/L (22-30); Chloride 99 mmol/L (98-107); Glucose 86 mg/dL (74-99); Non-African American GFR(CKD) 57 (>60 ml/min/1.73 sqM); Sodium 140 mmol/L (137-145); Total Bilirubin 0.8 mg/dL (0.2-1.3); Total Protein 7.5 g/dL (6.3-8.2)
--- NOTE | 2024-04-02 12:25 | XR ---
EXAMINATION TYPE: XR chest 2V DATE OF EXAM: 04/02/2024 11:58 AM COMPARISON: Chest radiographs from 02/26/2021 CLINICAL INDICATION: Female, 83 years old with history of difficulty breathing; [facility] TECHNIQUE: XR chest 2V Frontal and lateral views of the chest. FINDINGS: Lungs/Pleura: Blunting of the right costophrenic angle. There is no evidence of left pleural effusio n, focal consolidation, or pneumothorax Pulmonary vascularity: Unremarkable. Heart/mediastinum: Cardiomediastinal silhouette is partially obscured due to overlying and adjacent o pacities. Musculoskeletal: No acute osseous pathology. IMPRESSION: Moderate to large right pleural effusion [facility], , 04/02/2024 12:23 PM
[2024-04-02 12:30] LABS: INR 1.1 (<1.2); Partial Thromboplastin Time 24.1 sec (22.0-30.0); Prothrombin Time 11.9 sec (10.0-12.5)
[2024-04-02 12:31] LABS: Influenza A Not Detected (Not Detectd); Influenza B Not Detected (Not Detectd); RSV Not Detected (Not Detectd)
--- NOTE | 2024-04-02 14:52 | CT ---
EXAMINATION TYPE: CT chest angio for PE DATE OF EXAM: 04/02/2024 2:06 PM COMPARISON: Chest radiograph from same day. CT 09/17/2017. CLINICAL INDICATION: Female, 83 years old with history of dyspnea, pleural effusion, elevated dimer; dyspnea, pleural effusion, elevated dimer TECHNIQUE/CONTRAST: CTA scan of the thorax is performed with IV Contrast, patient injected with 60ml mL of Isovue 370, [place] P images are created and reviewed these are created on a separate workstation.. CT DLP: 372.4 mGycm, Automated exposure control for dose reduction was used. FINDINGS: Lungs/Pleura: Large right pleural effusion with associated atelectasis. Scattered nodular areas of pl eural thickening example includes medially anteriorly series 411 image 55 posteriorly series 401 imag e 120 Airway: Large airways are patent. Heart: Size within normal limits Vasculature: There is no evidence for a filling defect within the pulmonary vasculature to suggest ac geo pulmonary embolism. The pulmonary artery is of normal size. Mediastinum: Enlarged lymph nodes throughout the mediastinum, example includes: right peritracheal up to 20 mm in short axis. Right periaortic measuring 12 mm right epicardial fat lymph nodes measuring up to 9 mm. Musculoskeletal: No acute osseous abnormalities Soft Tissues/lymph nodes: Unremarkable. Lower neck: No significant findings. Upper Abdomen: No significant findings. IMPRESSION: 1. No evidence of pulmonary embolism. 2. Nodular areas in the right pleura with large right pleural effusion and mediastinal lymphadenopath y concerning for malignancy until proven otherwise. PET/CT recommended. [facility], , 04/02/2024 2:49 PM
[2024-04-02] MEDS ORDERED: IBUPROFEN 400 MG TAB PO PRN (15:44)
[2024-04-02] MEDS ORDERED: ACETAMINOPHEN TAB 325 MG TAB PO PRN (15:44)
[2024-04-02] MEDS ORDERED: NALOXONE 0.4 MG/ML 1 ML VIAL IV PRN (15:44)
[2024-04-02] MEDS ORDERED: MORPHINE SULFATE 4 MG/ML SYRINGE IV PRN (15:44)
[2024-04-02] MEDS ORDERED: NON FORMULARY DRUG (Co Q-10 100mg 100 MG) PO SCH (21:00)
[2024-04-02] MEDS: amLODIPine 5 MG TAB PO SCH (21:57)
[2024-04-02] MEDS: ATORVASTATIN 20 MG TAB PO SCH (21:57)
[2024-04-02] MEDS: METOPROLOL TARTRATE 12.5 MG TAB PO SCH (21:57)
[2024-04-02 22:01] LABS: Glucose,Whole Blood 156 mg/dL (70-110)
[2024-04-02] MEDS: INSULIN DETEMIR (LEVEMIR) 100 UNIT/ML SYR SQ SCH (22:38)
[2024-04-02] MEDS: GABAPENTIN 400 MG CAP PO SCH (22:49)
[2024-04-02] MEDS: HYDROcodone/APAP 7.5-325MG 1 EACH TAB PO SCH (22:49)
--- NOTE | 2024-04-03 04:05 | P.CNPUL ---
History of Present Illness Consult date: 04/03/24 Requesting physician: Shannan Hartley Reason for consult: pleural effusion Chief complaint: shortness of breath History of present illness: Patient is an 83-year-old female with past medical history significant for mild intermittent asthma, ILD, hypertension, hyperlipidemia, diabetes mellitus, hyp othyroidism, breast cancer with previous left mastectomy in 2012. Her primary care provider is Dr. Worrell. Pulmonary consult placed for right-sided pleural effusion and abnormal chest CT findings. Presented to emergency department yesterday morning with a chief complaint of progressively worsening shortness of breath for approximately 1 week. No significant infectious symptoms. Denies fever/chills, chest pain, cough. Did states she was recently treated for a "bad cold" by her PCP approximately 1 month ago with antibiotics. Denies history of heart failure. Does states she has intermittent lower extremity swelling. No notable known current/active malignancies. Does have remote history of breast cancer. Denies any previous pleural effusion or thoracentesis. Denies any anticoagulant use. Chest CTA done in the emergency department did not show any evidence of pulmonary embolism. Did show a large right pleural effusion with associated atelectasis. Scattered nodular areas of pleural thickening. Enlarged lymph nodes throughout the mediastinum, including a right paratracheal lymph node measuring up to 2 cm and a right periaortic lymph node measuring 1.2 cm. Findings that are suspicious for malignancy until proven otherwise. CBC: WBC count 10.4, hemoglobin 16.5, platelets 317. CMP: Sodium 140, potassium 4.2, chloride 99, serum bicarb 30, BUN 18, creatinine 0.95, glucose 86. LFTs unremarkable. Troponin less than 0.012. Viral screen negative for influenza, RSV, COVID. Vital signs: Temperature 98 F, heart rate 81 bpm, blood pressure 117/72 mmHg, nontachypneic, SpO2 reading 97% on 3 L/min nasal cannula. Review of Systems Constitutional: Reports fatigue, Reports weight loss (Approximately 10 pounds over 2 to 3-month timeframe), Denies chills, Denies fever, Denies lethargy, Denies night sweats, Denies poor appetite, Denies weight gain Ears, nose, mouth and throat: Denies headache, Denies nasal congestion, Denies nasal discharge, Denies post-nasal drip, Denies sinus pain, Denies sinus pressure, Denies sore throat Cardiovascular: Reports leg edema, Denies chest pain, Denies lightheadedness, Denies orthopnea, Denies palpitations, Denies paroxysmal nocturnal dyspnea, Denies syncope Respiratory: Denies cough with sputum, Denies hemoptysis, Denies home oxygen, Denies wheezing Gastrointestinal: Denies abdominal pain, Denies constipation, Denies diarrhea, Denies hematochezia, Denies loss of appetite, Denies melena, Denies nausea, Denies vomiting Genitourinary: Denies dysuria, Denies hematuria Musculoskeletal: Denies limitation of motion Integumentary: Denies rash Neurological: Denies seizures, Denies syncope Psychiatric: Denies anxiety, Denies depression Past Medical History Past Medical History: Asthma, Cancer, Diabetes Mellitus, Hyperlipidemia, Hyp ertension, Thyroid Disorder Additional Past Medical History / Comment(s): breast cancer, left mastectomy History of Any Multi-Drug Resistant Organisms: None Reported Past Surgical History: Cholecystectomy, Hysterectomy Additional Past Surgical History / Comment(s): aneursym repair, pt denies pmh of cholecystectomy Smoking Status: Former smoker Past Alcohol Use History: None Reported Past Drug Use History: None Reported - Past Family History Father Additional Family Medical History / Comment(s): " of brain tumor" Mother Family Medical History: Dementia Sister(s) Family Medical History: Cancer Additional Family Medical History / Comment(s): ovarian cancer Brother(s) Family Medical History: Cancer Additional Family Medical History / Comment(s): prostate cancer Medications and Allergies Home Medications Medication Instructions Recorded Confirmed Type Levothyroxine Sodium [Synthroid] 100 mcg PO DAILY 12/07/13 04/02/24 History allopurinoL [Allopurinol] 100 mg PO DAILY 12/07/13 04/02/24 History Aspirin EC [Ecotrin Low Dose] 81 mg PO W/LUNCH 02/26/21 04/02/24 History Gabapentin 800 mg PO TID 02/26/21 04/02/24 History Rosuvastatin [Crestor] 10 mg PO HS 02/26/21 04/02/24 History Albuterol Inhaler [Ventolin Hfa 1 puff INHALATION RT-Q4H PRN 04/02/24 04/02/24 History Inhaler] Co Q-10 100mg 100 mg PO HS 04/02/24 04/02/24 History Cyanocobalamin [Vitamin B-12] 500 mcg PO W/LUNCH 04/02/24 04/02/24 History Hydrocodone/Apap 7.5-300mg 1 tab PO TID 04/02/24 04/02/24 History Insulin Glargine,Hum.rec.anlog 45 units SQ HS 04/02/24 04/02/24 History [Toujeo Max Solostar] Losartan Potassium 100 mg PO DAILY 04/02/24 04/02/24 History Metoprolol Tartrate [Lopressor] 12.5 mg PO BID 04/02/24 04/02/24 History Multivit-Min/Iron/Folic/Lutein 1 tab PO W/LUNCH 04/02/24 04/02/24 History [Centrum Silver Women Tablet] amLODIPine [Norvasc] 5 mg PO BID 04/02/24 04/02/24 History hydroCHLOROthiazide 12.5 mg PO DAILY 04/02/24 04/02/24 History Allergies Allergy/AdvReac Type Severity Reaction Status Date / Time No Known Allergies Allergy Verified 04/02/24 16:30 Physical Exam Vitals: Vital Signs Temp Pulse Pulse Resp BP BP Pulse Ox 04/03/24 01:36 98.0 F 81 20 117/72 97 04/02/24 22:40 125/77 99 04/02/24 21:28 97.7 F 87 19 153/80 98 04/02/24 20:26 90 18 118/67 97 04/02/24 17:36 84 20 124/64 98 04/02/24 15:18 72 17 157/81 98 04/02/24 12:03 72 18 116/72 97 04/02/24 10:57 18 04/02/24 10:45 97.9 F 82 16 122/77 93 L Intake and Output 04/02/24 04/02/24 04/03/24 14:59 22:59 06:59 Other: Voiding Method Toilet # Voids 1 Weight 86.183 kg 86.183 kg GENERAL EXAM: Alert, 83-year-old well-nourished female, comfortable in no apparent distress. HEAD: Normocephalic and atraumatic EYES: Normal reaction of pupils, equal size. NOSE: Clear with pink turbinates. THROAT: No erythema or exudates. NECK: No masses, no JVD. CHEST: No chest wall deformity. LUNGS: Equal air entry with diminished right basilar lung sounds. No crackles, wheezes, rhonchi. On 3 L/min nasal cannula. No conversational dyspnea or accessory muscle use.. CVS: S1 and S2 normal with no audible murmur, regular rhythm. No extra heart sounds ABDOMEN: No hepatosplenomegaly, active bowel sounds, no guarding or rigidity. SPINE: No scoliosis or deformity SKIN: No rashes CENTRAL NERVOUS SYSTEM: No focal deficits, tone is normal in all 4 extremities. EXTREMITIES: There is no peripheral edema, clubbing, or cyanosis. Peripheral pulses are intact. Results - Laboratory Findings CBC and BMP: 04/02/24 11:46 04/02/24 11:46 PT/INR, D-dimer PT 11.9 sec (10.0-12.5) 04/02/24 11:46 INR 1.1 (<1.2) 04/02/24 11:46 D-Dimer 1.56 mg/L FEU (<0.60) H 04/02/24 11:46 Abnormal lab findings: Abnormal Labs 04/02/24 04/02/24 04/02/24 11:46 11:46 11:46 RBC 5.42 H Hgb 16.5 H Hct 50.8 H D-Dimer 1.56 H BUN 18 H POC Glucose (mg/dL) 04/02/24 22:00 RBC Hgb Hct D-Dimer BUN POC Glucose (mg/dL) 156 H - Diagnostic Findings Chest x-ray: image reviewed CT scan - chest: image reviewed Assessment and Plan Assessment: Large right-sided pleural effusion, nodular irregularities of the right pleural, and mediastinal lymphadenopathy; the possibility of malignancy should be excluded Acute shortness of breath, secondary to above Acute hypoxemic respiratory failure, currently on 3 L/min nasal cannula History of mild intermittent bronchial asthma, stable History of ILD Hypertension History of ascending thoracic aortic aneurysm History of hyperlipidemia Diabetes mellitus, insulin-dependent History of hypothyroidism, with previous thyroidectomy History of breast cancer with previous left mastectomy in 2013 Remote history of tobacco use Plan: Continue on supplemental oxygen, currently on 3 L/min nasal cannula No previous thoracentesis Not currently on any anticoagulants Will discuss possible diagnostic/therapeutic thoracentesis with Dr. Bone I have personally seen and examined the patient, performed the documentation and the assessment and plan as written. Number of minutes spent on the visit:20 Time with Patient: Greater than 30
[2024-04-03 06:14] LABS: Glucose,Whole Blood 58 mg/dL (70-110)
[2024-04-03] MEDS ORDERED: IPRATROPIUM-ALBUTEROL 3 ML NEB INHALATION PRN (06:29)
[2024-04-03 06:40] LABS: Glucose,Whole Blood 81 mg/dL (70-110)
[2024-04-03] MEDS: INSULIN ASPART (NovoLOG) 100 UNIT/ML VIAL SQ SCH (06:42)
[2024-04-03 07:07] LABS: Basophils # (A) 0.1 k/uL (0-0.2); Basophils % (A) 1 %; Eosinophils # (A) 0.6 k/uL (0-0.7); Eosinophils % (A) 5 %; HCT 48.9 % (34.0-46.0); HGB 15.6 gm/dL (11.4-16.0); Hypochromasia Slight; Lymphocytes # (A) 3.7 k/uL (1.0-4.8); Lymphocytes % (A) 33 %; MCH 30.7 pg (25.0-35.0); MCHC 31.9 g/dL (31.0-37.0); MCV 96.1 fL (80.0-100.0); Mean Platelet Volume 8.1; Monocytes # (A) 0.7 k/uL (0-1.0); Monocytes % (A) 6 %; Neutrophils # (A) 5.7 k/uL (1.3-7.7); Neutrophils % (A) 51 %; Platelet Count 331 k/uL (150-450); RBC 5.09 m/uL (3.80-5.40); RDW 13.4 % (11.5-15.5); WBC 11.1 k/uL (3.8-10.6)
[2024-04-03 07:45] LABS: ALT 21 U/L (4-34); AST 31 U/L (14-36); African American GFR (CKD) 68 (>60 ml/min/1.73 sqM); Albumin 4.1 g/dL (3.5-5.0); Albumin/Globulin Ratio 1.3; Alkaline Phosphatase 46 U/L (38-126); Anion Gap 10 mmol/L; Blood Urea Nitrogen 18 mg/dL (7-17); Calcium 9.3 mg/dL (8.4-10.2); Carbon Dioxide 33 mmol/L (22-30); Chloride 98 mmol/L (98-107); Globulin 3.2 g/dL; Glucose 79 mg/dL (74-99); Non-African American GFR(CKD) 59 (>60 ml/min/1.73 sqM); Potassium 3.6 mmol/L (3.5-5.1); Sodium 141 mmol/L (137-145); Total Bilirubin 0.7 mg/dL (0.2-1.3); Total Protein 7.3 g/dL (6.3-8.2)
[2024-04-03] MEDS: LEVOTHYROXINE 100 MCG TAB PO SCH (08:50)
[2024-04-03] MEDS: hydroCHLOROthiazide 12.5 MG CAP PO SCH (08:50)
[2024-04-03] MEDS: LOSARTAN 50 MG TAB PO SCH (08:50)
[2024-04-03] MEDS: allopurinoL 100 MG TAB PO SCH (08:52)
[2024-04-03] MEDS: DAPAGLIFLOZIN PROPANEDIOL 10 MG TABLET PO SCH (08:52)
--- NOTE | 2024-04-03 11:24 | US ---
EXAMINATION TYPE: US chest DATE OF EXAM: 04/03/2024 COMPARISON: NONE CLINICAL INDICATION: Female, 83 years old with history of pleural effusion mateo for thoracentesis; k nown effusion on the right, SOB TECHNIQUE: Grayscale imaging of the chest. Targeted ultrasound of the posterior lower right FINDINGS: EXAM MEASUREMENTS: Right Pleural Effusion pocket size: 16.1 cm Right skin surface to fluid distance: 4.9 cm Right side marked for possible thoracentesis outside the dept. Pulmonologists are able to review the images in the patient?s EMR. IMPRESSIONS: 1. Right pleural effusion [facility], , 04/03/2024 11:21 AM
[2024-04-03 12:09] LABS: Glucose,Whole Blood 118 mg/dL (70-110)
--- NOTE | 2024-04-03 13:07 | P.HPIM ---
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 Patient will need to have a thoracentesis for therapeutic and diagnostic purposes. REVIEW OF SYSTEMS: Constitutional: No documented fever, no chills, no night sweats. No weight change. No weakness, fatigue or lethargy. No daytime sleepiness. EENT: No headache. No blurred vision or double vision, no loss of vision. No loss of Hearing, no ringing in the ears, no dizziness. No nasal drainage or congestion. No epistaxis. No sore throat. Lungs: No shortness of breath, no cough, no sputum production. No wheezing. Reports dyspnea with activity. Cardiovascular: No chest pain, no lower extremity edema. No palpitations. No paroxysmal nocturnal dyspnea. No orthopnea. No lightheadedness or dizziness. No syncopal episodes. Abdominal: Reports abdominal pain. No nausea, vomiting. No diarrhea. No constipation. No bloody or tarry stools reports loss of appetite. Genitourinary: No dysuria, increased frequency, urgency. No urinary retention. Musculoskeletal: No myalgias. No muscle weakness, no gait dysfunction, no frequent falls. No back pain. No neck pain. Integumentary: No wounds, no lesions. No rash or pruritus. No unusual bruising. No change in hair or nails. Neurologic: No aphasia. No facial droop. No change in mentation. No head injury. No headache. No paralysis. No paresthesia. Psychiatric: No depression. No anxiety. No mood swings. Endocrine: No abnormal blood sugars. No weight change. PAST MEDICAL HISTORY: Hypertension and hypertensive cardiovascular disease. Mixed hyperlipidemia. Diabetes mellitus type 2. Diabetic polyneuropathy. Hypothyroidism. Gout. Vitamin D deficiency. Osteoporosis. Left breast cancer status post left mastectomy 2011 Spondylosis of the lumbar spine. Mild intermittent asthma. PAST SURGICAL HISTORY: Thyroidectomy 1966 Partial hysterectomy Brain aneurysm 1998 Left mastectomy 2011 Right forearm open reduction internal fixation 12/31/2004 Left great toe surgery EGD and colonoscopy 2012 Colonoscopy 07/23/2021. SOCIAL HISTORY: Used to smoke about a pack every day since the age of 18 and quit when she was 68-year-old, she denies any alcohol ingestion, no drug use or abuse FAMILY HISTORY: Father at age 69 from glioblastoma multiforme and had a brain aneurysm mother at the age of 89 from hip fracture and had hypertension patient has 2 brothers 1 brother with heart disease as well as benign cancer the other 1 is okay patient has 1 sister who from ovarian cancer, the other 1 is alive and well, patient has 1 son okay, and 1 daughter is okay. PHYSICAL EXAMINATION: General: 83-year-old female laying down in bed in no apparent distres s. HEENT: Head is atraumatic, normocephalic, pupils were equal round reactive to light and recommendation, extraocular muscle movement were intact, sclera nonicteric, conjunctivae were pale, mucous membranes of the mouth are somewhat dry. Neck: Supple, no JVP, normal carotid upstroke bilaterally, no lymphadenopathy. Chest: Decreased breath sounds at the bases, decreased tactile fremitus on the right lower lobe few rhonchi, no expiratory wheezes, no chest wall tenderness, no intercostal retractions. Heart: First heart sound is normal, second heart sounds normal there is systolic ejection murmur 2 over systolic in the left sternal border. Abdomen: Soft, nontender, nondistended, positive bowel sounds. Extremities: There is no edema no calf tenderness DP +2 bilaterally. Neurologic examination: Patient is awake alert and oriented x3, cranial nerves II-12 appear grossly intact, muscle power were 5 out of 5 in upper extremities and 5 out of 5 in bilateral lower extremities, deep tendon reflexes normal bilaterally. ASSESSMENT AND PLAN: 1. Acute hypoxemic respiratory insufficiency due to a large right-sided pleural effusion with mediastinal lymphadenopathy and right pleural nodular lesions rule out malignancy patient was admitted to telemetry unit, pulmonary consultation was obtained for thoracentesis for diagnostic and therapeutic purposes patient is seen by pulmonary medicine at this point in time, and the plan is to have thoracentesis later on today. Continue oxygen support at 3 L nasal cannula, continue nebulizer treatment in the form of DuoNeb therapy nebulization 4 times every day. 2. Hypertension and hypertensive cardiovascular disease. Continue metoprolol 12.5 mg orally twice every day, losartan 100 mg orally once every day, hydrochlorothiazide 12.5 mg once every day, and amlodipine 5 mg orally twice every day, monitor the patient blood pressure very closely. 3. Mixed hyperlipidemia. Continue atorvastatin 20 mg once every day, monitor lipid panel, keep LDL 55-70. 4. Diabetes mellitus type 2.. Continue patient on Levemir 45 units at bedtime along with a sliding scale insulin, continue Farxiga 10 mg orally once every day, check blood glucose before each meal and bedtime. 5. Diabetic polyneuropathy. Continue gabapentin 800 mg orally 3 times every da y. 6. Hypothyroidism. Continue levothyroxine 100 mcg orally once every day. 7. History of gout. Continue allopurinol 100 mg orally once every day. 8 vitamin D deficiency. Continue vitamin D supplements. 9. Osteoporosis. Follow-up as an outpatient. 10. 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 Continue hydrocodone. 11. DVT prophylaxis. Hold off heparin until after thoracentesis. 12. GI prophylaxis. Continue Protonix 40 mg orally once every day. 13. Admit to inpatient. Estimated length of stay 2 midnights. 14. Code. Past Medical History Past Medical History: Asthma, Cancer, Diabetes Mellitus, Hyperlipidemia, Hypertension, Thyroid Disorder Additional Past Medical History / Comment(s): breast cancer, left mastectomy History of Any Multi-Drug Resistant Organisms: None Reported Past Surgical History: Cholecystectomy, Hysterectomy Additional Past Surgical History / Comment(s): aneursym repair, pt denies pmh of cholecystectomy Smoking Status: Former smoker Past Alcohol Use History: None Reported Past Drug Use History: None Reported - Past Family History Father Additional Family Medical History / Comment(s): " of brain tumor" Mother Family Medical History: Dementia Sister(s) Family Medical History: Cancer Additional Family Medical History / Comment(s): ovarian cancer Brother(s) Family Medical History: Cancer Additional Family Medical History / Comment(s): prostate cancer Medications and Allergies Home Medications Medication Instructions Recorded Confirmed Type Levothyroxine Sodium [Synthroid] 100 mcg PO DAILY 12/07/13 04/02/24 History allopurinoL [Allopurinol] 100 mg PO DAILY 12/07/13 04/02/24 History Aspirin EC [Ecotrin Low Dose] 81 mg PO W/LUNCH 02/26/21 04/02/24 History Gabapentin 800 mg PO TID 02/26/21 04/02/24 History Rosuvastatin [Crestor] 10 mg PO HS 02/26/21 04/02/24 History Albuterol Inhaler [Ventolin Hfa 1 puff INHALATION RT-Q4H PRN 04/02/24 04/02/24 History Inhaler] Co Q-10 100mg 100 mg PO HS 04/02/24 04/02/24 History Cyanocobalamin [Vitamin B-12] 500 mcg PO W/LUNCH 04/02/24 04/02/24 History Hydrocodone/Apap 7.5-300mg 1 tab PO TID 04/02/24 04/02/24 History Insulin Glargine,Hum.rec.anlog 45 units SQ HS 04/02/24 04/02/24 History [Toujeo Max Solostar] Losartan Potassium 100 mg PO DAILY 04/02/24 04/02/24 History Metoprolol Tartrate [Lopressor] 12.5 mg PO BID 04/02/24 04/02/24 History Multivit-Min/Iron/Folic/Lutein 1 tab PO W/LUNCH 04/02/24 04/02/24 History [Centrum Silver Women Tablet] amLODIPine [Norvasc] 5 mg PO BID 04/02/24 04/02/24 History hydroCHLOROthiazide 12.5 mg PO DAILY 04/02/24 04/02/24 History Allergies Allergy/AdvReac Type Severity Reaction Status Date / Time No Known Allergies Allergy Verified 04/02/24 16:30 Physical Exam Vitals: Vital Signs Temp Pulse Pulse Resp BP BP Pulse Ox 04/03/24 01:36 98.0 F 81 20 117/72 97 04/02/24 22:40 125/77 99 04/02/24 21:28 97.7 F 87 19 153/80 98 04/02/24 20:26 90 18 118/67 97 04/02/24 17:36 84 20 124/64 98 04/02/24 15:18 72 17 157/81 98 04/02/24 12:03 72 18 116/72 97 04/02/24 10:57 18 04/02/24 10:45 97.9 F 82 16 122/77 93 L Intake and Output 04/02/24 04/02/24 04/03/24 14:59 22:59 06:59 Other: Voiding Method Toilet # Voids 1 1 Weight 86.183 kg 86.183 kg Results CBC & Chem 7: 04/02/24 11:46 04/02/24 11:46 Labs: Abnormal Lab Results - Last 24 Hours (Table) 04/02/24 04/02/24 04/02/24 Range/Units 11:46 11:46 11:46 RBC 5.42 H (3.80-5.40) m/uL Hgb 16.5 H (11.4-16.0) gm/dL Hct 50.8 H (34.0-46.0) % D-Dimer 1.56 H (<0.60) mg/L FEU BUN 18 H (7-17) mg/dL POC Glucose (mg/dL) (70-110) mg/dL 04/02/24 Range/Units 22:00 RBC (3.80-5.40) m/uL Hgb (11.4-16.0) gm/dL Hct (34.0-46.0) % D-Dimer (<0.60) mg/L FEU BUN (7-17) mg/dL POC Glucose (mg/dL) 156 H (70-110) mg/dL Thrombosis Risk Factor Assmnt - Choose All That Apply Each Factor Represents 1 point: Obesity (BMI >25) Each Risk Factor Represents 3 Points: Age 75 years or older Thrombosis Risk Factor Assessment Total Risk Factor Score: 4 Thrombosis Risk Factor Assessment Level: Moderate Risk
--- NOTE | 2024-04-03 14:56 | P.CONS ---
History of Present Illness - Reason for Consult Consult date: 04/03/24 pleural effusion, mediastinal LAD Requesting physician: Shannan Hartley - Chief Complaint SOB x 1 week - History of Present Illness Ms. Samson is a pleasant female patient of Dr. Wilmer Cardona, diagnosed with breast cancer in 2011. February 2011 patient was diagnosed with T2 N0 M0 grade 3, ER/NM negative, HER2 +3 by IHC. She had a left mastectomy, 4 cycles of TCH with poor tolerance overall. Completed full year of Herceptin April 2012. She has been following with Dr. Cardona annually for several years, she has had no evidence of recurrence in that time. Patient is currently admitted with complaints of shortness of breath, started about 2 weeks ago, has been persistent and progressive. She came to the ER, CTA of the chest was negative for PE, pleural effusion was noted, Pulmonary has seen the patient and pending plans for a diagnostic thoracentesis. Pleural nodules were noted. Patient is reporting about a 10 pound weight loss. She denies any fevers, sweats, difficulty swallowing, chest pain, abdominal pain, acute changes in bowel or bladder habits, new bone pain, neurological symptoms. She does not report any changes in the chest wall. No lymphadenopathy. Review of Systems 10 point ROS is neg except as stated in HPI Past Medical History Past Medical History: Asthma, Cancer, Diabetes Mellitus, Hyperlipidemia, Hypertension, Thyroid Disorder Additional Past Medical History / Comment(s): breast cancer, left mastectomy History of Any Multi-Drug Resistant Organisms: None Reported Past Surgical History: Breast Surgery (left mastectomy), Cholecystectomy, Hysterectomy Additional Past Surgical History / Comment(s): aneursym repair, pt denies pmh of cholecystectomy Past Psychological History: No Psychological Hx Reported Smoking Status: Former smoker Past Alcohol Use History: None Reported Past Drug Use History: None Reported - Past Family History Father Family Medical History: Cancer (brain) Additional Family Medical History / Comment(s): " of brain tumor" Mother Family Medical History: Dementia Sister(s) Family Medical History: Cancer (breast) Additional Family Medical History / Comment(s): ovarian cancer Brother(s) Family Medical History: Cancer Additional Family Medical History / Comment(s): prostate cancer Medications and Allergies Home Medications Medication Instructions Recorded Confirmed Type Levothyroxine Sodium [Synthroid] 100 mcg PO DAILY 12/07/13 04/02/24 History allopurinoL [Allopurinol] 100 mg PO DAILY 12/07/13 04/02/24 History Aspirin EC [Ecotrin Low Dose] 81 mg PO W/LUNCH 02/26/21 04/02/24 History Gabapentin 800 mg PO TID 02/26/21 04/02/24 History Rosuvastatin [Crestor] 10 mg PO HS 02/26/21 04/02/24 History Albuterol Inhaler [Ventolin Hfa 1 puff INHALATION RT-Q4H PRN 04/02/24 04/02/24 History Inhaler] Co Q-10 100mg 100 mg PO HS 04/02/24 04/02/24 History Cyanocobalamin [Vitamin B-12] 500 mcg PO W/LUNCH 04/02/24 04/02/24 History Hydrocodone/Apap 7.5-300mg 1 tab PO TID 04/02/24 04/02/24 History Insulin Glargine,Hum.rec.anlog 45 units SQ HS 04/02/24 04/02/24 History [Toujeo Max Solostar] Losartan Potassium 100 mg PO DAILY 04/02/24 04/02/24 History Metoprolol Tartrate [Lopressor] 12.5 mg PO BID 04/02/24 04/02/24 History Multivit-Min/Iron/Folic/Lutein 1 tab PO W/LUNCH 04/02/24 04/02/24 History [Centrum Silver Women Tablet] amLODIPine [Norvasc] 5 mg PO BID 04/02/24 04/02/24 History hydroCHLOROthiazide 12.5 mg PO DAILY 04/02/24 04/02/24 History Allergies Allergy/AdvReac Type Severity Reaction Status Date / Time No Known Allergies Allergy Verified 04/02/24 16:30 Physical Exam Vitals: Vital Signs Temp Pulse Pulse Resp BP BP Pulse Ox 04/03/24 07:00 97.3 F L 83 18 147/92 97 04/03/24 01:36 98.0 F 81 20 117/72 97 04/02/24 22:40 125/77 99 04/02/24 21:28 97.7 F 87 19 153/80 98 04/02/24 20:26 90 18 118/67 97 04/02/24 17:36 84 20 124/64 98 04/02/24 15:18 72 17 157/81 98 04/02/24 12:03 72 18 116/72 97 04/02/24 10:57 18 04/02/24 10:45 97.9 F 82 16 122/77 93 L Intake and Output 04/02/24 04/03/24 04/03/24 22:59 06:59 14:59 Other: Voiding Method Toilet # Voids 1 1 Weight 86.183 kg - Constitutional General appearance: average body habitus, cooperative, no acute distress - EENT Eyes: anicteric sclerae, EOMI ENT: hearing grossly normal, normal oropharynx - Neck Neck: no lymphadenopathy - Respiratory Respiratory: bilateral: CTA - Cardiovascular Rhythm: regular Heart sounds: normal: S1, S2 leg Peripheral Edema: bilateral: None - Gastrointestinal General gastrointestinal: no absent bowel sounds, no decreased bowel sounds, no distended, no hepatomegaly, no hyperactive bowel sounds, normal bowel sounds, no organomegaly, no rigid, no scaphoid, soft, no splenomegaly, no tenderness, no umbilical hernia, no ventral hernia - Integumentary Integumentary: normal - Neurologic Neurologic: CNII-XII intact - Musculoskeletal Musculoskeletal: strength equal bilaterally - Psychiatric Psychiatric: A&O x's 3, appropriate affect, intact judgment & insight Results CBC & Chem 7: 04/03/24 06:42 04/03/24 06:42 Labs: Abnormal Lab Results - Last 24 Hours (Table) 04/02/24 04/02/24 04/02/24 Range/Units 11:46 11:46 11:46 WBC (3.8-10.6) k/uL RBC 5.42 H (3.80-5.40) m/uL Hgb 16.5 H (11.4-16.0) gm/dL Hct 50.8 H (34.0-46.0) % D-Dimer 1.56 H (<0.60) mg/L FEU Carbon Dioxide (22-30) mmol/L BUN 18 H (7-17) mg/dL POC Glucose (mg/dL) (70-110) mg/dL 04/02/24 04/03/24 04/03/24 Range/Units 22:00 06:12 06:42 WBC 11.1 H (3.8-10.6) k/uL RBC (3.80-5.40) m/uL Hgb (11.4-16.0) gm/dL Hct 48.9 H (34.0-46.0) % D-Dimer (<0.60) mg/L FEU Carbon Dioxide (22-30) mmol/L BUN (7-17) mg/dL POC Glucose (mg/dL) 156 H 58 L (70-110) mg/dL 04/03/24 Range/Units 06:42 WBC (3.8-10.6) k/uL RBC (3.80-5.40) m/uL Hgb (11.4-16.0) gm/dL Hct (34.0-46.0) % D-Dimer (<0.60) mg/L FEU Carbon Dioxide 33 H (22-30) mmol/L BUN 18 H (7-17) mg/dL POC Glucose (mg/dL) (70-110) mg/dL Chest x-ray: report reviewed CT scan - chest: report reviewed Assessment and Plan (1) Mediastinal lymphadenopathy Current Visit: Yes Status: Acute Priority: High Code(s): R59.0 - LOCALIZED ENLARGED LYMPH NODES SNOMED Code(s): 93128651 (2) Pleural effusion Current Visit: Yes Status: Acute Priority: High Code(s): J90 - PLEURAL EFFUSION, NOT ELSEWHERE CLASSIFIED SNOMED Code(s): 58594680 (3) Breast CA Current Visit: Yes Status: Acute Priority: High Code(s): C50.919 - MALIGNANT NEOPLASM OF UNSP SITE OF UNSPECIFIED FEMALE BREAST SNOMED Code(s): 715283490 Plan: Mediastinal lymphadenopathy, pleural effusion. -Reviewed with patient and family pleural effusion and other imaging findings are likely the cause for her shortness of breath -Discussed with patient and family at the bedside concerning findings on imaging for new primary malignancy versus a metastatic malignancy from her history of breast cancer -Have reviewed Pulmonary notes, agree with plan for thoracentesis-diagnostic purposes and to help improve pt resp status History of breast cancer -Diagnosis and treatment as stated in HPI -Patient is almost 13 years out from her original diagnosis. Though metastasis is not common, it is not impossible. Pending Pulmonary assessment of the case and plan Doctor attests: I performed a history and physical examination of this patient, developed impression and plan of care. Discussed with dictator. I agree with dictators note, documented as a scribe.
[2024-04-03 17:44] LABS: Glucose,Whole Blood 140 mg/dL (70-110)
[2024-04-03] MEDS: ASPIRIN 81 MG PO SCH (17:46)
--- NOTE | 2024-04-03 19:03 | XR ---
EXAMINATION TYPE: XR chest 1V portable DATE OF EXAM: 04/03/2024 5:13 PM COMPARISON: 04/02/2014 . CLINICAL INDICATION: Female, 83 years old with history of post thoracentesis, TECHNIQUE: XR chest 1V portable view(s) obtained. FINDINGS: The heart size is normal. The pulmonary vasculature is normal. Previous moderate right pleural effusion is largely diminished. No pneumothorax is evident thoracentesis. Mild infiltrate at the right base. A small right pleural effusion is present.. IMPRESSION: 1. Right basilar infiltrate with a small residual right pleural effusion. Subsegmental atelectasis co uld be considered. Follow-up is recommended. 2. No pneumothorax postthoracentesis. [facility], , 04/03/2024 7:00 PM
[2024-04-03 20:37] LABS: Glucose,Whole Blood 151 mg/dL (70-110)
--- NOTE | 2024-04-03 21:49 | P.CNPUL ---
History of Present Illness Consult date: 04/03/24 Reason for consult: pleural effusion History of present illness: Patient is an 83-year-old female with past medical history significant for mild intermittent asthma, ILD, hypertension, hyperlipidemia, diabetes mellitus, hypothyroidism, breast cancer with previous left mastectomy in 2013. Her primary care provider is Dr. Worrell. Pulmonary consult placed for right-sided pleural effusion and abnormal chest CT findings. Presented to emergency department yesterday morning with a chief complaint of progressively worsening shortness of breath for approximately 1 week. No significant infectious symptoms. Denies fever/chills, chest pain, cough. Did states she was recently treated for a "bad cold" by her PCP approximately 1 month ago with antibiotics. Denies history of heart failure. Does states she has intermittent lower extremity swelling. No notable known current/active malignancies. Does have remote history of breast cancer. Denies any previous pleural effusion or thoracentesis. Denies any anticoagulant use. Chest CTA done in the emergency department did not show any evidence of pulmonary embolism. Did show a large right pleural effusion with associated atelectasis. Scattered nodular areas of pleural thickening. Enlarged lymph nodes throughout the mediastinum, including a right paratracheal lymph node measuring up to 2 cm and a right periaortic lymph node measuring 1.2 cm. Findings that are suspicious for malignancy until proven otherwise. CBC: WBC count 10.4, hemoglobin 16.5, platelets 317. CMP: Sodium 140, potassium 4.2, chloride 99, serum bicarb 30, BUN 18, creatinine 0.95, glucose 86. LFTs unremarkable. Troponin less than 0.012. Viral screen negative for influenza, RSV, COVID. Vital signs: Temperature 98 F, heart rate 81 bpm, blood pressure 117/72 mmHg, nontachypneic, SpO2 reading 97% on 3 L/min nasal cannula. I personally reviewed the CAT scan of the chest. There is abnormality and nodularity along the right pleura. There is a moderate-sized right-sided pleural effusion along with compressive atelectatic changes right lung base. The patient also has right paratracheal lymphadenopathy. Patient has been losing weight. This presentation along with unilateral pleural effusion is suspicious for malignancy. CEA level is elevated. Last colonoscopy was done 2 years ago. Review of Systems Constitutional: Reports fatigue, Reports weight loss (Approximately 10 pounds over 2 to 3-month timeframe), Denies chills, Denies fever, Denies lethargy, Denies night sweats, Denies poor appetite, Denies weight gain Ears, nose, mouth and throat: Denies headache, Denies nasal congestion, Denies nasal discharge, Denies post-nasal drip, Denies sinus pain, Denies sinus pressure, Denies sore throat Cardiovascular: Reports leg edema, Denies chest pain, Denies lightheadedness, Denies orthopnea, Denies palpitations, Denies paroxysmal nocturnal dyspnea, Denies syncope Respiratory: Denies cough with sputum, Denies hemoptysis, Denies home oxygen, Denies wheezing Gastrointestinal: Denies abdominal pain, Denies constipation, Denies diarrhea, Denies hematochezia, Denies loss of appetite, Denies melena, Denies nausea, Denies vomiting Genitourinary: Denies dysuria, Denies hematuria Musculoskeletal: Denies limitation of motion Integumentary: Denies rash Neurological: Denies seizures, Denies syncope Past Medical History Past Medical History: Asthma, Cancer, Diabetes Mellitus, Hyperlipidemia, Hypertension, Thyroid Disorder Additional Past Medical History / Comment(s): breast cancer, left mastectomy History of Any Multi-Drug Resistant Organisms: None Reported Past Surgical History: Breast Surgery (left mastectomy), Cholecystectomy, Hysterectomy Additional Past Surgical History / Comment(s): aneursym repair, pt denies pmh of cholecystectomy Past Psychological History: No Psychological Hx Reported Smoking Status: Former smoker Past Alcohol Use History: None Reported Past Drug Use History: None Reported - Past Family History Father Family Medical History: Cancer (brain) Additional Family Medical History / Comment(s): " of brain tumor" Mother Family Medical History: Dementia Sister(s) Family Medical History: Cancer (breast) Additional Family Medical History / Comment(s): ovarian cancer Brother(s) Family Medical History: Cancer Additional Family Medical History / Comment(s): prostate cancer Medications and Allergies Home Medications Medication Instructions Recorded Confirmed Type Levothyroxine Sodium [Synthroid] 100 mcg PO DAILY 12/07/13 04/02/24 History allopurinoL [Allopurinol] 100 mg PO DAILY 12/07/13 04/02/24 History Aspirin EC [Ecotrin Low Dose] 81 mg PO W/LUNCH 02/26/21 04/02/24 History Gabapentin 800 mg PO TID 02/26/21 04/02/24 History Rosuvastatin [Crestor] 10 mg PO HS 02/26/21 04/02/24 History Albuterol Inhaler [Ventolin Hfa 1 puff INHALATION RT-Q4H PRN 04/02/24 04/02/24 History Inhaler] Co Q-10 100mg 100 mg PO HS 04/02/24 04/02/24 History Cyanocobalamin [Vitamin B-12] 500 mcg PO W/LUNCH 04/02/24 04/02/24 History Hydrocodone/Apap 7.5-300mg 1 tab PO TID 04/02/24 04/02/24 History Insulin Glargine,Hum.rec.anlog 45 units SQ HS 04/02/24 04/02/24 History [Toujeo Max Solostar] Losartan Potassium 100 mg PO DAILY 04/02/24 04/02/24 History Metoprolol Tartrate [Lopressor] 12.5 mg PO BID 04/02/24 04/02/24 History Multivit-Min/Iron/Folic/Lutein 1 tab PO W/LUNCH 04/02/24 04/02/24 History [Centrum Silver Women Tablet] amLODIPine [Norvasc] 5 mg PO BID 04/02/24 04/02/24 History hydroCHLOROthiazide 12.5 mg PO DAILY 04/02/24 04/02/24 History Allergies Allergy/AdvReac Type Severity Reaction Status Date / Time No Known Allergies Allergy Verified 04/02/24 16:30 Physical Exam Vitals: Vital Signs Temp Pulse Resp BP Pulse Ox 04/03/24 16:44 98 109/51 98 04/03/24 14:40 97.9 F 76 15 137/57 97 04/03/24 07:00 97.3 F L 83 18 147/92 97 04/03/24 01:36 98.0 F 81 20 117/72 97 04/02/24 22:40 125/77 99 Intake and Output 04/03/24 04/03/24 04/03/24 06:59 14:59 22:59 Intake Total 358 240 Balance 358 240 Intake: Oral 358 240 Other: Voiding Method Toilet Toilet # Voids 1 3 GENERAL EXAM: Alert, 83-year-old well-nourished female, comfortable in no apparent distress. HEAD: Normocephalic and atraumatic EYES: Normal reaction of pupils, equal size. NOSE: Clear with pink turbinates. THROAT: No erythema or exudates. NECK: No masses, no JVD. CHEST: No chest wall deformity. LUNGS: Equal air entry with diminished right basilar lung sounds. No crackles, wheezes, rhonchi. On 3 L/min nasal cannula. No conversational dyspnea or accessory muscle use.. CVS: S1 and S2 normal with no audible murmur, regular rhythm. No extra heart sounds ABDOMEN: No hepatosplenomegaly, active bowel sounds, no guarding or rigidity. SPINE: No scoliosis or deformity SKIN: No rashes CENTRAL NERVOUS SYSTEM: No focal deficits, tone is normal in all 4 extremities. EXTREMITIES: There is no peripheral edema, clubbing, or cyanosis. Peripheral pulses are intact. Results - Laboratory Findings CBC and BMP: 04/03/24 06:42 04/03/24 06:42 PT/INR, D-dimer PT 11.9 sec (10.0-12.5) 04/02/24 11:46 INR 1.1 (<1.2) 04/02/24 11:46 D-Dimer 1.56 mg/L FEU (<0.60) H 04/02/24 11:46 Abnormal lab findings: Abnormal Labs 04/02/24 04/02/24 04/02/24 11:46 11:46 11:46 WBC RBC 5.42 H Hgb 16.5 H Hct 50.8 H D-Dimer 1.56 H Carbon Dioxide BUN 18 H POC Glucose (mg/dL) Carcinoembryonic Ag 04/02/24 04/03/24 04/03/24 22:00 06:12 06:42 WBC RBC Hgb Hct D-Dimer Carbon Dioxide BUN POC Glucose (mg/dL) 156 H 58 L Carcinoembryonic Ag 51.4 H 04/03/24 04/03/24 04/03/24 06:42 06:42 12:08 WBC 11.1 H RBC Hgb Hct 48.9 H D-Dimer Carbon Dioxide 33 H BUN 18 H POC Glucose (mg/dL) 118 H Carcinoembryonic Ag 04/03/24 04/03/24 17:42 20:36 WBC RBC Hgb Hct D-Dimer Carbon Dioxide BUN POC Glucose (mg/dL) 140 H 151 H Carcinoembryonic Ag - Diagnostic Findings Chest x-ray: image reviewed CT scan - chest: image reviewed Assessment and Plan Plan: Large right-sided pleural effusion, nodular irregularities of the right pleural, and mediastinal lymphadenopathy; the possibility of malignancy should be excluded. In fact, I am highly suspicious for malignancy as the patient has pleural irregularities on the right and the patient has an unexplained unilateral right-sided pleural effusion. CEA level is also elevated which is a nonspecific finding although it can be consistent with lung cancer in addition. The patient also has right paratracheal lymphadenopathy. I performed a bedside thoracentesis on this patient had a total of 1.8 L of pleural fluid was aspirated. The pleural fluid will be sent for cytology and chemical analysis. Postthoracentesis chest x-ray showed some residual infiltration and volume loss in the right lung base. Acute shortness of breath, secondary to above Acute hypoxemic respiratory failure, currently on 3 L/min nasal cannula History of mild intermittent bronchial asthma, stable History of ILD Hypertension History of ascending thoracic aortic aneurysm History of hyperlipidemia Diabetes mellitus, insulin-dependent History of hypothyroidism, with previous thyroidectomy History of breast cancer with previous left mastectomy in 2013 Remote history of tobacco use Plan: Continue on supplemental oxygen, currently on 3 L/min nasal cannula Thoracentesis was performed with a total of 1.8 L of pleural fluid aspirated. The fluid is nonbloody. Will obtain tumor markers Obtain a follow-up CAT scan of the chest abdomen and pelvis in a.m. Awaiting pleural fluid cytology Oncology is on the case Consider endobronchial ultrasound and biopsy of the right paratracheal lymph node if there is no tissue diagnosis established from the pleural fluid. Not currently on any anticoagulants Will discuss possible will continue to follow.
--- NOTE | 2024-04-03 21:49 | P.PCN ---
Date of Procedure: 04/03/24 Preoperative Diagnosis: Pleural effusion, right Postoperative Diagnosis: Same Procedure(s) Performed: Thoracentesis, right Anesthesia: local Surgeon: Sera Bone Estimated Blood Loss (ml): 0 Pathology: other Condition: stable Disposition: floor Operative Findings: A time out was performed and the chest x-ray was reviewed, the appropriate side was confirmed and marked. My hands were washed immediately prior to the procedure. I wore a surgical cap, mask with protective eyewear, sterile gown and sterile gloves throughout the procedure. The patient was prepped and draped in a sterile manner using chlorhexidine scrub after the appropriate level was percussed and confirmed by ultrasound. 1% lidocaine was used to anesthesize the skin, subcutaneous tissue, superior aspect of the rib periosteum and parietal pleura. A finder needle was then introduced over the superior aspect of the rib to locate the pleural fluid; 2colored fluid was aspirated at a depth of approximately 2 cm. A 10-blade scalpel was used to niyah the skin at the insertion site. The [id number] needle was then introduced through the skin incision into the pleural space using negative aspiration pressure and the red colometric indicator to confirm appropriate positioning of the needle. The thoracentesis catheter was then threaded without difficulty. 1800 ml of turbid colored fluid was removed without difficulty. The catheter was then removed. No immediate complications were noted during the procedure. A post-procedure chest x-ray is pending at the time of this note. The fluid will be sent for studies. Estimated blood loss is 0cc
[2024-04-04 02:12] LABS: Glucose, BF Source Pleural Fluid; Glucose, Body Fluid 166 mg/dL; LDH, Body Fluid Source Pleural Fluid; T. Protein, Body Fluid Source Pleural Fluid; Total Protein, Body Fluid >3600 mg/dL
[2024-04-04 03:42] LABS: Appearance,BF Cloudy (Clear)
[2024-04-04 05:53] LABS: Glucose,Whole Blood 105 mg/dL (70-110)
[2024-04-04 12:21] LABS: Glucose,Whole Blood 113 mg/dL (70-110)
[2024-04-04] MEDS: IOPAMIDOL CONTRAST (ORAL USE) VIAL PO PRN (13:06)
[2024-04-04 14:52] LABS: HCT 49.4 % (34.0-46.0); HGB 15.9 gm/dL (11.4-16.0); Hypochromasia Slight; MCH 31.1 pg (25.0-35.0); MCHC 32.2 g/dL (31.0-37.0); MCV 96.7 fL (80.0-100.0); Mean Platelet Volume 8.2; Platelet Count 300 k/uL (150-450); RBC 5.11 m/uL (3.80-5.40); RDW 13.2 % (11.5-15.5); WBC 15.5 k/uL (3.8-10.6)
[2024-04-04 14:59] LABS: ALT 24 U/L (4-34); African American GFR (CKD) 68 (>60 ml/min/1.73 sqM); Albumin/Globulin Ratio 1.2; Anion Gap 11 mmol/L; Blood Urea Nitrogen 23 mg/dL (7-17); Calcium 8.5 mg/dL (8.4-10.2); Carbon Dioxide 27 mmol/L (22-30); Chloride 97 mmol/L (98-107); Globulin 3.3 g/dL; Glucose 97 mg/dL (74-99); Non-African American GFR(CKD) 59 (>60 ml/min/1.73 sqM); Sodium 135 mmol/L (137-145); Total Bilirubin 0.9 mg/dL (0.2-1.3)
[2024-04-04 15:17] LABS: AST 42 U/L (14-36); Albumin 3.9 g/dL (3.5-5.0); Potassium 4.6 mmol/L (3.5-5.1); Total Protein 7.2 g/dL (6.3-8.2)
[2024-04-04 15:18] LABS: Alkaline Phosphatase 42 U/L (38-126)
[2024-04-04 15:59] VITALS: BMI 30.6
--- NOTE | 2024-04-04 16:50 | CT ---
EXAMINATION TYPE: CT ChestAbdPelvis w con DATE OF EXAM: 04/04/2024 COMPARISON: CTA chest dated 04/02/2024 CLINICAL INDICATION: Female, 83 years old with history of malignancy CT DLP: mGycm Automated exposure control for dose reduction was used. CONTRAST: CT scan of the chest, abdomen and pelvis is performed following the uneventful administration of nereida onic IV contrast material. FINDINGS: CT chest: There is a stable 9.8 mm groundglass nodule in the right lung apex. There is a moderate right pleural effusion which has decreased significantly in the interval. There h as been interval increase in partially consolidative opacities in the right lung with new marked inte rstitial density in the right middle and lower lobes. There is no change in the diffuse pleural nodul arity in the right hemithorax. Index nodules are seen along the right major fissure measuring approxi mately 8 to 9 mm in size. The great vessels the chest are normal. Transverse persistent right hilar and mediastinal adenopathy. The left lung and pleura are unremarkable. No left pleural effusion or pneumothorax. CT abdomen and pelvis: There is a single large gallstone but no gallbladder wall thickening, distention or pericholecystic f luid. There is no biliary ductal dilatation. There are multiple small ill-defined hypodensities scattered throughout the liver largest of which is in the right lobe and measures approximately 14 mm. These are highly suspicious for metastatic lesio ns. No pancreatic mass. There is a well-circumscribed 11 mm hypodensity in the spleen which most like ly represents a cyst. There are no adrenal masses. There is no solid renal mass or hydronephrosis. There is no retroperitoneal adenopathy or hemorrhage in the caliber of the abdominal aorta is normal. The bowel loops are normal in caliber and there is no dilatation or obstruction. No inflammatory michaud ges identified in the bowel wall and mesentery. There is no free intracranial air or fluid. There is no pelvic mass or adenopathy. There is no free fluid within the pelvis. There is advanced degenerative disc disease in the mid and lower lumbar spine but there are no focal osseous lesions. There are no pathological fractures. IMPRESSION: 1. Persistent pleural-based nodules in the right lung as described above. 2. Moderately decreased right pleural effusion. 3. Increased right mid and lower lobe interstitial and airspace consolidative densities. 4. Multiple ill-defined hypodensities within the liver. 5.persistent right hilar and mediastinal adenopathy. 6. No osseous abnormalities 7.Above combination of findings suggestive of primary neoplasm within the right pleura or lung with m etastatic disease to the mediastinum, right hilum and liver. [facility], Workstation: [facility], 04/04/2024 4:47 PM
[2024-04-04 17:27] LABS: Glucose,Whole Blood 220 mg/dL (70-110)
--- NOTE | 2024-04-04 20:19 | P.PN ---
Subjective Progress Note Date: 04/04/24 Patient is an 83-year-old female with past medical history significant for mild intermittent asthma, ILD, hypertension, hyperlipidemia, diabetes mellitus, hypothyroidism, breast cancer with previous left mastectomy in 2013. Her primary care provider is Dr. Worrell. Pulmonary consult placed for right-sided pleural effusion and abnormal chest CT findings. Presented to emergency department yesterday morning with a chief complaint of progressively worsening shortness of breath for approximately 1 week. No significant infectious symptoms. Denies fever/chills, chest pain, cough. Did states she was recently treated for a "bad cold" by her PCP approximately 1 month ago with antibiotics. Denies history of heart failure. Does states she has intermittent lower extremity swelling. No notable known current/active malignancies. Does have remote history of breast cancer. Denies any previous pleural effusion or thoracentesis. Denies any anticoagulant use. Chest CTA done in the emergency department did not show any evidence of pulmonary embolism. Did show a large right pleural effusion with associated atelectasis. Scattered nodular areas of pleural thickening. Enlarged lymph nodes throughout the mediastinum, including a right paratracheal lymph node measuring up to 2 cm and a right periaortic lymph node measuring 1.2 cm. Findings that are suspicious for malignancy until proven otherwise. CBC: WBC count 10.4, hemoglobin 16.5, platelets 317. CMP: Sodium 140, potassium 4.2, chloride 99, serum bicarb 30, BUN 18, creatinine 0.95, glucose 86. LFTs unremarkable. Troponin less than 0.012. Viral screen negative for influenza, RSV, COVID. Vital signs: Temperature 98 F, heart rate 81 bpm, blood pressure 117/72 mmHg, nontachypneic, SpO2 reading 97% on 3 L/min nasal cannula. I personally reviewed the CAT scan of the chest. There is abnormality and nodularity along the right pleura. There is a moderate-sized right-sided pleural effusion along with compressive atelectatic changes right lung base. The patient also has right paratracheal lymphadenopathy. Patient has been losing weight. This presentation along with unilateral pleural effusion is suspicious for malignancy. CEA level is elevated. Last colonoscopy was done 2 years ago. on today's evaluation of 04/04/2023, the patient is postthoracentesis. Pleural fluid and exudate based on LDH criteria. The patient is currently on room air oxygen with a pulse ox of 94%. Feels less short of breath. The white cell count is 15 with a hemoglobin of 15.9 and platelet count of 300. BUN 23 with a creatinine of 0.9. LFTs are essentially within normal limits. The tumor markers showed a normal CA 15-3, normal CA 19-9, and normal CA 27-29. CEA level was elevated. A follow-up CAT scan of the chest abdomen and pelvis was also done and it shows persistent pleural-based nodular densities involving the right lung and decrease in the right-sided pleural effusion. There is right mid and right lower lobe interstitial and airspace consolidative densities and multiple ill-defined hypodensities within the liver and persistent hilar and mediastinal lymphadenopathy. No obvious bony metastases. Objective - Vital Signs Vital signs: Vital Signs Temp 97.8 F 04/04/24 14:52 Pulse 84 04/04/24 14:52 Resp 17 04/04/24 14:52 BP 147/70 04/04/24 14:52 Pulse Ox 94 L 04/04/24 14:52 FiO2 Intake & Output 04/04/24 04/04/24 04/05/24 06:59 18:59 06:59 Intake Total 240 Balance 240 Weight 80.9 kg Intake: Oral 240 Other: Voiding Method Toilet # Voids 1 5 - Exam GENERAL EXAM: Alert, 83-year-old well-nourished female, comfortable in no apparent distress. Patient is on room air oxygen HEAD: Normocephalic and atraumatic EYES: Normal reaction of pupils, equal size. NOSE: Clear with pink turbinates. THROAT: No erythema or exudates. NECK: No masses, no JVD. CHEST: No chest wall deformity. LUNGS: Equal air entry with diminished right basilar lung sounds. No crackles, wheezes, rhonchi. No conversational dyspnea or accessory muscle use.. CVS: S1 and S2 normal with no audible murmur, regular rhythm. No extra heart sounds ABDOMEN: No hepatosplenomegaly, active bowel sounds, no guarding or rigidity. SPINE: No scoliosis or deformity SKIN: No rashes CENTRAL NERVOUS SYSTEM: No focal deficits, tone is normal in all 4 extremities. EXTREMITIES: There is no peripheral edema, clubbing, or cyanosis. Peripheral pulses are intact. - Labs CBC & Chem 7: 04/04/24 14:13 04/04/24 14:13 Labs: Abnormal Lab Results - Last 24 Hours (Table) 04/03/24 04/03/24 04/04/24 Range/Units 16:46 20:36 12:19 WBC (3.8-10.6) k/uL Hct (34.0-46.0) % Sodium (137-145) mmol/L Chloride (98-107) mmol/L BUN (7-17) mg/dL POC Glucose (mg/dL) 151 H 113 H (70-110) mg/dL AST (14-36) U/L Fluid Appearance Cloudy A (Clear) 04/04/24 04/04/24 04/04/24 Range/Units 14:13 14:13 17:25 WBC 15.5 H (3.8-10.6) k/uL Hct 49.4 H (34.0-46.0) % Sodium 135 L (137-145) mmol/L Chloride 97 L (98-107) mmol/L BUN 23 H (7-17) mg/dL POC Glucose (mg/dL) 220 H (70-110) mg/dL AST 42 H (14-36) U/L Fluid Appearance (Clear) Microbiology - Last 24 Hours (Table) 04/03/24 16:46 Gram Stain - Preliminary Pleural Fluid Body Fluid Culture - Preliminary Assessment and Plan Plan: Large right-sided pleural effusion, nodular irregularities of the right pleural, and mediastinal lymphadenopathy; the possibility of malignancy should be excluded. In fact, I am highly suspicious for malignancy as the patient has pleural irregularities on the right and the patient has an unexplained unilateral right-sided pleural effusion. CEA level is also elevated which is a nonspecific finding although it can be consistent with lung cancer in addition. The patient also has right paratracheal lymphadenopathy. I performed a bedside thoracentesis on this patient had a total of 1.8 L of pleural fluid was aspirated. The pleural fluid will be sent for cytology and chemical analysis. The pleural fluid is an exudate. Cytology still pending for now. Repeat CAT scan of the chest abdomen and pelvis shows pleural irregularities on the right, mediastinal lymphadenopathy and suspicious hepatic lesions. Consider malignancy. Acute shortness of breath, secondary to above Acute hypoxemic respiratory failure, currently on room air oxygen History of mild intermittent bronchial asthma, stable History of ILD Hypertension History of ascending thoracic aortic aneurysm History of hyperlipidemia Diabetes mellitus, insulin-dependent History of hypothyroidism, with previous thyroidectomy History of breast cancer with previous left mastectomy in 2013 Remote history of tobacco use Plan: C patient currently on room air oxygen Thoracentesis was performed with a total of 1.8 L of pleural fluid aspirated. The fluid is nonbloody. Tumor markers are negative except for CEA CAT scan of the chest abdomen and pelvis was noted Awaiting pleural fluid cytology Oncology is on the case Consider endobronchial ultrasound and biopsy of the right paratracheal lymph node if there is no tissue diagnosis established from the pleural fluid.
[2024-04-04 20:50] LABS: Glucose,Whole Blood 161 mg/dL (70-110)
[2024-04-05 06:26] LABS: Glucose,Whole Blood 112 mg/dL (70-110)
[2024-04-05 08:44] LABS: ALT 21 U/L (8-44); AST 28 U/L (13-35); Albumin 3.5 g/dL (3.8-4.9); Albumin/Globulin Ratio 1.35 Ratio (1.60-3.17); Alkaline Phosphatase 46 U/L (41-126); Calcium 8.4 mg/dL (8.7-10.3); Carbon Dioxide 29.9 mmol/L (21.6-31.8); Chloride 98 mmol/L (96-109); Globulin 2.6 g/dL (1.6-3.3); Glucose 100 mg/dL (70-110); Potassium 4.2 mmol/L (3.5-5.5); Sodium 138 mmol/L (135-145); Total Bilirubin 0.4 mg/dL (0.3-1.2); Total Protein 6.1 g/dL (6.2-8.2)
[2024-04-05 08:51] LABS: Basophils # (A) 0.18 X 10*3/uL (0.00-0.10); Basophils % (A) 1.8 %; Eosinophils # (A) 0.74 X 10*3/uL (0.04-0.35); Eosinophils % (A) 7.2 %; HCT 43.5 % (37.2-46.3); HGB 14.4 g/dL (12.0-15.0); Lymphocytes # (A) 2.57 X 10*3/uL (0.90-5.00); MCH 30.3 pg (27.0-32.0); MCHC 33.1 g/dL (32.0-37.0); MCV 91.6 FL (80.0-97.0); Mean Platelet Volume 11.3 FL (9.5-12.2); Monocytes # (A) 0.99 X 10*3/uL (0.20-1.00); Monocytes % (A) 9.6 %; NRBC Per 100 WBC 0 X 10*3/uL (0.00-0.01); Neutrophils # (A) 5.69 X 10*3/uL (1.80-7.70); Neutrophils % (A) 55.5 %; Platelet Count 285 X 10*3/uL (140-440); RBC 4.75 X 10*6/uL (4.10-5.20); RDW 13.4 % (11.5-14.5); WBC 10.26 X 10*3/uL (4.50-10.00)
[2024-04-05 12:16] LABS: Glucose,Whole Blood 107 mg/dL (70-110)
[2024-04-05] MEDS: TRIAMCINOLONE 0.1% CREAM 80 GM TUBE TOPICAL SCH (14:23)
[2024-04-05 17:37] LABS: Glucose,Whole Blood 134 mg/dL (70-110)
[2024-04-05 19:31] LABS: Glucose,Whole Blood 160 mg/dL (70-110)
--- NOTE | 2024-04-05 19:49 | P.PN ---
Subjective Progress Note Date: 04/05/24 Patient is an 83-year-old female with past medical history significant for mild intermittent asthma, ILD, hypertension, hyperlipidemia, diabetes mellitus, hypothyroidism, breast cancer with previous left mastectomy in 2013. Her primary care provider is Dr. Worrell. Pulmonary consult placed for right-sided pleural effusion and abnormal chest CT findings. Presented to emergency department yesterday morning with a chief complaint of progressively worsening shortness of breath for approximately 1 week. No significant infectious symptoms. Denies fever/chills, chest pain, cough. Did states she was recently treated for a "bad cold" by her PCP approximately 1 month ago with antibiotics. Denies history of heart failure. Does states she has intermittent lower extremity swelling. No notable known current/active malignancies. Does have remote history of breast cancer. Denies any previous pleural effusion or thoracentesis. Denies any anticoagulant use. Chest CTA done in the emergency department did not show any evidence of pulmonary embolism. Did show a large right pleural effusion with associated atelectasis. Scattered nodular areas of pleural thickening. Enlarged lymph nodes throughout the mediastinum, including a right paratracheal lymph node measuring up to 2 cm and a right periaortic lymph node measuring 1.2 cm. Findings that are suspicious for malignancy until proven otherwise. CBC: WBC count 10.4, hemoglobin 16.5, platelets 317. CMP: Sodium 140, potassium 4.2, chloride 99, serum bicarb 30, BUN 18, creatinine 0.95, glucose 86. LFTs unremarkable. Troponin less than 0.012. Viral screen negative for influenza, RSV, COVID. Vital signs: Temperature 98 F, heart rate 81 bpm, blood pressure 117/72 mmHg, nontachypneic, SpO2 reading 97% on 3 L/min nasal cannula. I personally reviewed the CAT scan of the chest. There is abnormality and nodularity along the right pleura. There is a moderate-sized right-sided pleural effusion along with compressive atelectatic changes right lung base. The patient also has right paratracheal lymphadenopathy. Patient has been losing weight. This presentation along with unilateral pleural effusion is suspicious for malignancy. CEA level is elevated. Last colonoscopy was done 2 years ago. on today's evaluation of 04/04/2023, the patient is postthoracentesis. Pleural fluid and exudate based on LDH criteria. The patient is currently on room air oxygen with a pulse ox of 94%. Feels less short of breath. The white cell count is 15 with a hemoglobin of 15.9 and platelet count of 300. BUN 23 with a creatinine of 0.9. LFTs are essentially within normal limits. The tumor markers showed a normal CA 15-3, normal CA 19-9, and normal CA 27-29. CEA level was elevated. A follow-up CAT scan of the chest abdomen and pelvis was also done and it shows persistent pleural-based nodular densities involving the right lung and decrease in the right-sided pleural effusion. There is right mid and right lower lobe interstitial and airspace consolidative densities and multiple ill-defined hypodensities within the liver and persistent hilar and mediastinal lymphadenopathy. No obvious bony metastases. On 02/02/2025, the patient is being seen for a follow-up. Doing much better following the thoracentesis. Seems to be less short of breath. The pleural fluid cytology still pending for now. The patient denies having any other specific complaints. Resting comfortably in bed. Medications are essentially unchanged. Objective - Vital Signs Vital signs: Vital Signs Temp 98.0 F 04/05/24 14:57 Pulse 77 04/05/24 14:57 Resp 16 04/05/24 14:57 BP 97/52 04/05/24 14:57 Pulse Ox 96 04/05/24 14:57 FiO2 Intake & Output 04/05/24 04/05/24 04/06/24 06:59 18:59 06:59 Intake Total 380 Balance 380 Intake: Oral 380 Other: Voiding Method Toilet Toilet # Voids 3 3 - Exam GENERAL EXAM: Alert, 83-year-old well-nourished female, comfortable in no apparent distress. Patient is on room air oxygen HEAD: Normocephalic and atraumatic EYES: Normal reaction of pupils, equal size. NOSE: Clear with pink turbinates. THROAT: No erythema or exudates. NECK: No masses, no JVD. CHEST: No chest wall deformity. LUNGS: Equal air entry with diminished right basilar lung sounds. No crackles, wheezes, rhonchi. No conversational dyspnea or accessory muscle use.. CVS: S1 and S2 normal with no audible murmur, regular rhythm. No extra heart sounds ABDOMEN: No hepatosplenomegaly, active bowel sounds, no guarding or rigidity. SPINE: No scoliosis or deformity SKIN: No rashes CENTRAL NERVOUS SYSTEM: No focal deficits, tone is normal in all 4 extremities. EXTREMITIES: There is no peripheral edema, clubbing, or cyanosis. Peripheral pulses are intact. - Labs CBC & Chem 7: 04/05/24 05:18 04/05/24 05:18 Labs: Abnormal Lab Results - Last 24 Hours (Table) 04/04/24 04/05/24 04/05/24 Range/Units 20:49 05:18 05:18 WBC 10.26 H (4.50-10.00) X 10*3/uL Immature Gran # 0.09 H (0.00-0.04) X 10*3/uL Eosinophils # 0.74 H (0.04-0.35) X 10*3/uL Basophils # 0.18 H (0.00-0.10) X 10*3/uL POC Glucose (mg/dL) 161 H (70-110) mg/dL Calcium 8.4 L (8.7-10.3) mg/dL Total Protein 6.1 L (6.2-8.2) g/dL Albumin 3.5 L (3.8-4.9) g/dL Albumin/Globulin Ratio 1.35 L (1.60-3.17) Ratio 04/05/24 04/05/24 04/05/24 Range/Units 06:24 17:35 19:19 WBC (4.50-10.00) X 10*3/uL Immature Gran # (0.00-0.04) X 10*3/uL Eosinophils # (0.04-0.35) X 10*3/uL Basophils # (0.00-0.10) X 10*3/uL POC Glucose (mg/dL) 112 H 134 H 160 H (70-110) mg/dL Calcium (8.7-10.3) mg/dL Total Protein (6.2-8.2) g/dL Albumin (3.8-4.9) g/dL Albumin/Globulin Ratio (1.60-3.17) Ratio Microbiology - Last 24 Hours (Table) 04/03/24 16:46 Anaerobic Culture - Preliminary Pleural Fluid 04/03/24 16:46 Gram Stain - Preliminary Pleural Fluid Body Fluid Culture - Preliminary Assessment and Plan Plan: Large right-sided pleural effusion, nodular irregularities of the right pleural, and mediastinal lymphadenopathy; the possibility of malignancy should be excluded. In fact, I am highly suspicious for malignancy as the patient has pleural irregularities on the right and the patient has an unexplained unilateral right-sided pleural effusion. CEA level is also elevated which is a nonspecific finding although it can be consistent with lung cancer in addition. The patient also has right paratracheal lymphadenopathy. I performed a bedside thoracentesis on this patient had a total of 1.8 L of pleural fluid was aspirated. The pleural fluid will be sent for cytology and chemical analysis. The pleural fluid is an exudate. Cytology still pending for now. Repeat CAT scan of the chest abdomen and pelvis shows pleural irregularities on the right, mediastinal lymphadenopathy and suspicious hepatic lesions. Consider malignancy. Acute shortness of breath, secondary to above Acute hypoxemic respiratory failure, currently on room air oxygen History of mild intermittent bronchial asthma, stable History of ILD Hypertension History of ascending thoracic aortic aneurysm History of hyperlipidemia Diabetes mellitus, insulin-dependent History of hypothyroidism, with previous thyroidectomy History of breast cancer with previous left mastectomy in 2013 Remote history of tobacco use Plan: Clinically stable and less short of breath following thoracentesis Thoracentesis was performed with a total of 1.8 L of pleural fluid aspirated. The fluid is nonbloody. Tumor markers are negative except for CEA CAT scan of the chest abdomen and pelvis was noted Awaiting pleural fluid cytology Oncology is on the case Consider endobronchial ultrasound and biopsy of the right paratracheal lymph node if there is no tissue diagnosis established from the pleural fluid.
[2024-04-06 06:06] LABS: Glucose,Whole Blood 97 mg/dL (70-110)
--- NOTE | 2024-04-06 06:25 | P.PN ---
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 and mild intermittent asthma patient presented to the emergency department at [facility] yesterday with increased shortness of breath associated with increased coughing no phlegm production, initially had a chest x-ray that showed evidence of right-sided pleural effusion, but because of her D-dimer was quite elevated, patient underwent CT angiography of the chest that was negative for pulmonary embolism but did show evidence of a large pleural effusion with mediastinal lymphadenopathy she was admitted to the hospital for evaluation by pulmonary medicine as well as by oncology. Patient will need to have a thoracentesis for therapeutic and diagnostic purposes. 04/04: Patient is sitting up at the edge of the bed, did have right thoracentesis yesterday by fluid appears to be exudative, cytology still pending the time of dictation, patient is scheduled to go for a CT scan of the chest abdomen and pelvis this afternoon for further evaluation of possible lung cancer with metastatic disease, we will continue with current treatment plan at this point in time, continue to wean the oxygen off, patient may need to go home with home oxygen at this time, I will follow-up with the patient very closely, prognosis continues to be guarded, pulmonary medicine as well as a pathology oncology are following. REVIEW OF SYSTEMS: Constitutional: No documented fever, no chills, no night sweats. No weight change. No weakness, fatigue or lethargy. No daytime sleepiness. EENT: No headache. No blurred vision or double vision, no loss of vision. No loss of Hearing, no ringing in the ears, no dizziness. No nasal drainage or congestion. No epistaxis. No sore throat. Lungs: No shortness of breath, no cough, no sputum production. No wheezing. Reports dyspnea with activity. Cardiovascular: No chest pain, no lower extremity edema. No palpitations. No paroxysmal nocturnal dyspnea. No orthopnea. No lightheadedness or dizziness. No syncopal episodes. Abdominal: Reports abdominal pain. No nausea, vomiting. No diarrhea. No constipation. No bloody or tarry stools reports loss of appetite. Genitourinary: No dysuria, increased frequency, urgency. No urinary retention. Musculoskeletal: No myalgias. No muscle weakness, no gait dysfunction, no frequent falls. No back pain. No neck pain. Integumentary: No wounds, no lesions. No rash or pruritus. No unusual bruising. No change in hair or nails. Neurologic: No aphasia. No facial droop. No change in mentation. No head injury. No headache. No paralysis. No paresthesia. Psychiatric: No depression. No anxiety. No mood swings. Endocrine: No abnormal blood sugars. No weight change. PHYSICAL EXAMINATION: General: 83-year-old female laying down in bed in no apparent distress. HEENT: Head is atraumatic, normocephalic, pupils were equal round reactive to light and recommendation, extraocular muscle movement were intact, sclera non icteric, conjunctivae were pale, mucous membranes of the mouth are somewhat dry. Neck: Supple, no JVP, normal carotid upstroke bilaterally, no lymphadenopathy. Chest: Decreased breath sounds at the bases, decreased tactile fremitus on the right lower lobe few rhonchi, no expiratory wheezes, no chest wall tenderness, no intercostal retractions. Heart: First heart sound is normal, second heart sounds normal there is systolic ejection murmur 2 over systolic in the left sternal border. Abdomen: Soft, nontender, nondistended, positive bowel sounds. Extremities: There is no edema no calf tenderness DP +2 bilaterally. Neurologic examination: Patient is awake alert and oriented x3, cranial nerves II-12 appear grossly intact, muscle power were 5 out of 5 in upper extremities and 5 out of 5 in bilateral lower extremities, deep tendon reflexes normal bilaterally. ASSESSMENT AND PLAN: 1. Acute hypoxemic respiratory insufficiency due to a large right-sided pleural effusion with mediastinal lymphadenopathy and right pleural nodular lesions rule out malignancy status post right thoracentesis that yielded exudative fluid cytology still pending at time of dictation, she is going for a CT scan of the chest abdomen pelvis for further evaluation and staging of possible metastatic lung cancer. Pulmonary/hematology oncology are following, follow-up with the patient very closely try to arrange for home oxygen, final decision will be made in the next 1 or 2 days. 2. Hypertension and hypertensive cardiovascular disease. Continue metoprolol 12.5 mg orally twice every day, losartan 100 mg orally once every day, hydrochlorothiazide 12.5 mg once every day, and amlodipine 5 mg orally twice leonila ry day, monitor the patient blood pressure very closely. 3. Mixed hyperlipidemia. Continue atorvastatin 20 mg once every day, monitor lipid panel, keep LDL 55-70. 4. Diabetes mellitus type 2.. Continue patient on Levemir 45 units at bedtime along with a sliding scale insulin, continue Farxiga 10 mg orally once every day, check blood glucose before each meal and bedtime. 5. Diabetic polyneuropathy. Continue gabapentin 800 mg orally 3 times every day. 6. Hypothyroidism. Continue levothyroxine 100 mcg orally once every day. 7. History of gout. Continue allopurinol 100 mg orally once every day. 8 vitamin D deficiency. Continue vitamin D supplements. 9. Osteoporosis. Follow-up as an outpatient. 10. 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 Continue hydrocodone. 11. DVT prophylaxis. Start the patient on heparin 5000 units subcutaneously every 8 hours. 12. GI prophylaxis. Continue Protonix 40 mg orally once every day. 13. very guarded prognosis Objective - Vital Signs Vital signs: Vital Signs Temp 98.3 F 04/04/24 07:00 Pulse 76 04/04/24 07:00 Resp 16 04/04/24 07:00 BP 104/58 04/04/24 11:29 Pulse Ox 98 04/04/24 07:00 FiO2 Intake & Output 04/03/24 04/04/24 04/04/24 18:59 06:59 18:59 Intake Total 598 240 Balance 598 240 Intake: Oral 598 240 Other: Voiding Method Toilet Toilet # Voids 3 1 - Labs CBC & Chem 7: 04/05/24 05:18 04/05/24 05:18 Labs: Abnormal Lab Results - Last 24 Hours (Table) 04/03/24 04/03/24 04/03/24 Range/Units 06:42 16:46 17:42 POC Glucose (mg/dL) 140 H (70-110) mg/dL Carcinoembryonic Ag 51.4 H (0.0-4.9) ng/mL Fluid Appearance Cloudy A (Clear) 04/03/24 04/04/24 Range/Units 20:36 12:19 POC Glucose (mg/dL) 151 H 113 H (70-110) mg/dL Carcinoembryonic Ag (0.0-4.9) ng/mL Fluid Appearance (Clear) Microbiology - Last 24 Hours (Table) 04/03/24 16:46 Gram Stain - Preliminary Pleural Fluid
--- NOTE | 2024-04-06 06:27 | P.PN ---
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 Patient will need to have a thoracentesis for therapeutic and diagnostic purposes. 04/04: Patient is sitting up at the edge of the bed, did have right thoracentesis yesterday by fluid appears to be exudative, cytology still pending the time of dictation, patient is scheduled to go for a CT scan of the chest abdomen and pelvis this afternoon for further evaluation of possible lung cancer with metastatic disease, we will continue with current treatment plan at this point in time, continue to wean the oxygen off, patient may need to go home with home oxygen at this time, I will follow-up with the patient very closely, prognosis continues to be guarded, pulmonary medicine as well as a pathology oncology are following. 04/05: Patient is sitting at the edge of the bed, she is currently on 1 L nasal cannula, she is complaining of a rash at her mastectomy site on the left that appears to be contact dermatitis from using Neosporin, I will start the patient on triamcinolone cream to be applied twice every day, patient's cytology still pending the time of dictation, I asked the patient to stay in the hospital for another 24 hours hopefully we get the cytology tomorrow morning, CT scan of the chest abdomen pelvis was done and that showed evidence of possible malignancy with possible metastatic disease to the liver, I spoke with the patient about the current finding, we will hold off until final decision tomorrow morning she may need to go for more testing to have a tissue diagnosis at this point in time prior to her discharge home I will discuss with pulmonary medicine as well as hematology oncology the elevated CEA suggestive of malignancy likely lung cancer. REVIEW OF SYSTEMS: Constitutional: No documented fever, no chills, no night sweats. No weight change. No weakness, fatigue or lethargy. No daytime sleepiness. EENT: No headache. No blurred vision or double vision, no loss of vision. No loss of Hearing, no ringing in the ears, no dizziness. No nasal drainage or congestion. No epistaxis. No sore throat. Lungs: No shortness of breath, no cough, no sputum production. No wheezing. Reports dyspnea with activity. Cardiovascular: No chest pain, no lower extremity edema. No palpitations. No paroxysmal nocturnal dyspnea. No orthopnea. No lightheadedness or dizziness. No syncopal episodes. Abdominal: Reports abdominal pain. No nausea, vomiting. No diarrhea. No constipation. No bloody or tarry stools reports loss of appetite. Genitourinary: No dysuria, increased frequency, urgency. No urinary retention. Musculoskeletal: No myalgias. No muscle weakness, no gait dysfunction, no frequent falls. No back pain. No neck pain. Integumentary: No wounds, no lesions. No rash or pruritus. No unusual bruising. No change in hair or nails. Neurologic: No aphasia. No facial droop. No change in mentation. No head injury. No headache. No paralysis. No paresthesia. Psychiatric: No depression. No anxiety. No mood swings. Endocrine: No abnormal blood sugars. No weight change. PHYSICAL EXAMINATION: General: 83-year-old female laying down in bed in no apparent distress. HEENT: Head is atraumatic, normocephalic, pupils were equal round reactive to light and recommendation, extraocular muscle movement were intact, sclera nonicteric, conjunctivae were pale, mucous membranes of the mouth are somewhat dry. Neck: Supple, no JVP, normal carotid upstroke bilaterally, no lymphadenopathy. Chest: Decreased breath sounds at the bases, decreased tactile fremitus on the right lower lobe few rhonchi, no expiratory wheezes, no chest wall tenderness, no intercostal retractions. Heart: First heart sound is normal, second heart sounds normal there is systolic ejection murmur 2 over systolic in the left sternal border. Abdomen: Soft, nontender, nondistended, positive bowel sounds. Extremities: There is no edema no calf tenderness DP +2 bilaterally. Neurologic examination: Patient is awake alert and oriented x3, cranial nerves II-12 appear grossly intact, muscle power were 5 out of 5 in upper extremities and 5 out of 5 in bilateral lower extremities, deep tendon reflexes normal bilaterally. ASSESSMENT AND PLAN: 1. Acute hypoxemic respiratory insufficiency due to a large right-sided pleural effusion with mediastinal lymphadenopathy and right pleural nodular lesions rule out malignancy status post right thoracentesis that yielded exudative fluid cytology still pending at time of dictation, CT scan of the chest abdomen pelvis is suggestive of possible lung malignancy with metastatic disease to the liver, patient will likely require a tissue diagnosis will discuss with pulmonary medicine as well as hematology oncology, maybe she should do it while she is in the hospital versus follow-up as an outpatient. 2. Hypertension and hypertensive cardiovascular disease. Continue metoprolol 12.5 mg orally twice every day, losartan 100 mg orally once every day, hydroc hlorothiazide 12.5 mg once every day, and amlodipine 5 mg orally twice every day, monitor the patient blood pressure very closely. 3. Mixed hyperlipidemia. Continue atorvastatin 20 mg once every day, monitor lipid panel, keep LDL 55-70. 4. Diabetes mellitus type 2.. Continue patient on Levemir 45 units at bedtime along with a sliding scale insulin, continue Farxiga 10 mg orally once every day , check blood glucose before each meal and bedtime. 5. Diabetic polyneuropathy. Continue gabapentin 800 mg orally 3 times every day. 6. Hypothyroidism. Continue levothyroxine 100 mcg orally once every day. 7. History of gout. Continue allopurinol 100 mg orally once every day. 8 vitamin D deficiency. Continue vitamin D supplements. 9. Osteoporosis. Follow-up as an outpatient. 10. 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 Continue hydrocodone. 11. DVT prophylaxis. Start the patient on heparin 5000 units subcutaneously every 8 hours. 12. GI prophylaxis. Continue Protonix 40 mg orally once every day. 13. very guarded prognosis Objective - Vital Signs Vital signs: Vital Signs Temp 97.7 F 04/06/24 01:36 Pulse 92 04/06/24 01:36 Resp 17 04/06/24 01:36 BP 126/63 04/06/24 01:36 Pulse Ox 93 L 04/06/24 01:36 FiO2 Intake & Output 04/05/24 04/05/24 04/06/24 06:59 18:59 06:59 Intake Total 380 Balance 380 Intake: Oral 380 Other: Voiding Method Toilet Toilet Toilet # Voids 3 3 2 - Labs CBC & Chem 7: 04/05/24 05:18 04/05/24 05:18 Labs: Abnormal Lab Results - Last 24 Hours (Table) 04/05/24 04/05/24 04/05/24 Range/Units 05:18 05:18 06:24 WBC 10.26 H (4.50-10.00) X 10*3/uL Immature Gran # 0.09 H (0.00-0.04) X 10*3/uL Eosinophils # 0.74 H (0.04-0.35) X 10*3/uL Basophils # 0.18 H (0.00-0.10) X 10*3/uL POC Glucose (mg/dL) 112 H (70-110) mg/dL Calcium 8.4 L (8.7-10.3) mg/dL Total Protein 6.1 L (6.2-8.2) g/dL Albumin 3.5 L (3.8-4.9) g/dL Albumin/Globulin Ratio 1.35 L (1.60-3.17) Ratio 04/05/24 04/05/24 Range/Units 17:35 19:19 WBC (4.50-10.00) X 10*3/uL Immature Gran # (0.00-0.04) X 10*3/uL Eosinophils # (0.04-0.35) X 10*3/uL Basophils # (0.00-0.10) X 10*3/uL POC Glucose (mg/dL) 134 H 160 H (70-110) mg/dL Calcium (8.7-10.3) mg/dL Total Protein (6.2-8.2) g/dL Albumin (3.8-4.9) g/dL Albumin/Globulin Ratio (1.60-3.17) Ratio Microbiology - Last 24 Hours (Table) 04/03/24 16:46 Anaerobic Culture - Preliminary Pleural Fluid 04/03/24 16:46 Gram Stain - Preliminary Pleural Fluid Body Fluid Culture - Preliminary
[2024-04-06 07:02] LABS: Basophils # (A) 0.1 k/uL (0-0.2); Basophils % (A) 1 %; Eosinophils # (A) 0.7 k/uL (0-0.7); Eosinophils % (A) 6 %; HCT 44.7 % (34.0-46.0); HGB 14.9 gm/dL (11.4-16.0); Lymphocytes # (A) 3.6 k/uL (1.0-4.8); Lymphocytes % (A) 31 %; MCH 30.9 pg (25.0-35.0); MCHC 33.3 g/dL (31.0-37.0); MCV 92.8 fL (80.0-100.0); Mean Platelet Volume 8.7; Monocytes # (A) 0.7 k/uL (0-1.0); Monocytes % (A) 6 %; Neutrophils # (A) 6.2 k/uL (1.3-7.7); Neutrophils % (A) 53 %; Platelet Count 313 k/uL (150-450); RBC 4.81 m/uL (3.80-5.40); RDW 13.6 % (11.5-15.5); WBC 11.6 k/uL (3.8-10.6)
[2024-04-06 07:25] LABS: ALT 21 U/L (4-34); AST 37 U/L (14-36); African American GFR (CKD) 75 (>60 ml/min/1.73 sqM); Albumin 3.6 g/dL (3.5-5.0); Albumin/Globulin Ratio 1.2; Alkaline Phosphatase 50 U/L (38-126); Anion Gap 6 mmol/L; Blood Urea Nitrogen 23 mg/dL (7-17); Calcium 8.4 mg/dL (8.4-10.2); Carbon Dioxide 33 mmol/L (22-30); Chloride 95 mmol/L (98-107); Glucose 101 mg/dL (74-99); Non-African American GFR(CKD) 65 (>60 ml/min/1.73 sqM); Potassium 4.3 mmol/L (3.5-5.1); Sodium 134 mmol/L (137-145); Total Bilirubin 0.8 mg/dL (0.2-1.3); Total Protein 6.6 g/dL (6.3-8.2)
[2024-04-06] MEDS: HEPARIN SODIUM,PORCINE 5,000 UNIT/ML 1 ML VIAL SQ SCH (08:56)
[2024-04-06 12:20] LABS: Glucose,Whole Blood 116 mg/dL (70-110)
--- NOTE | 2024-04-06 16:10 | P.PN ---
Subjective Progress Note Date: 04/06/24 Principal diagnosis: SOB In f/u today pt reports that she walked to the bathroom and was SOB for a few minutes after. No other physical c/o, no N,V, pain to report. Objective - Vital Signs Vital signs: Vital Signs Temp 98.1 F 04/06/24 15:00 Pulse 79 04/06/24 15:00 Resp 16 04/06/24 15:00 BP 111/67 04/06/24 15:00 Pulse Ox 93 L 04/06/24 15:00 FiO2 Intake & Output 04/05/24 04/06/24 04/06/24 18:59 06:59 18:59 Intake Total 380 Balance 380 Intake: Oral 380 Other: Voiding Method Toilet Toilet Toilet # Voids 3 2 2 - Constitutional General appearance: Present: average body habitus, cooperative, no acute distress - EENT Eyes: Present: anicteric sclerae, EOMI ENT: Present: hearing grossly normal - Respiratory Respiratory: right: diminished, left: CTA - Cardiovascular Rhythm: regular Heart sounds: normal: S1, S2 Abnormal Heart Sounds: Absent: systolic murmur, diastolic murmur, rub, S3 Gallop, S4 Gallop, click, other - Peripheral edema leg Peripheral Edema: bilateral: None - Neurologic Neurologic: Present: CNII-XII intact - Musculoskeletal Musculoskeletal: Present: generalized weakness - Psychiatric Psychiatric: Present: A&O x's 3, appropriate affect, intact judgment & insight - Labs CBC & Chem 7: 04/06/24 06:36 04/06/24 06:36 Labs: Abnormal Lab Results - Last 24 Hours (Table) 04/05/24 04/05/24 04/06/24 Range/Units 17:35 19:19 06:36 WBC 11.6 H (3.8-10.6) k/uL Sodium (137-145) mmol/L Chloride (98-107) mmol/L Carbon Dioxide (22-30) mmol/L BUN (7-17) mg/dL Glucose (74-99) mg/dL POC Glucose (mg/dL) 134 H 160 H (70-110) mg/dL AST (14-36) U/L 04/06/24 04/06/24 Range/Units 06:36 12:18 WBC (3.8-10.6) k/uL Sodium 134 L (137-145) mmol/L Chloride 95 L (98-107) mmol/L Carbon Dioxide 33 H (22-30) mmol/L BUN 23 H (7-17) mg/dL Glucose 101 H (74-99) mg/dL POC Glucose (mg/dL) 116 H (70-110) mg/dL AST 37 H (14-36) U/L Microbiology - Last 24 Hours (Table) 04/03/24 16:46 Anaerobic Culture - Preliminary Pleural Fluid 04/03/24 16:46 Gram Stain - Preliminary Pleural Fluid Body Fluid Culture - Preliminary Assessment and Plan (1) Mediastinal lymphadenopathy Current Visit: Yes Status: Acute Priority: High Code(s): R59.0 - LOCALIZED ENLARGED LYMPH NODES SNOMED Code(s): 08592108 (2) Pleural effusion Current Visit: Yes Status: Acute Priority: High Code(s): J90 - PLEURAL EFFUSION, NOT ELSEWHERE CLASSIFIED SNOMED Code(s): 53496599 (3) Breast CA Current Visit: Yes Status: Acute Priority: High Code(s): C50.919 - MALIGNANT NEOPLASM OF UNSP SITE OF UNSPECIFIED FEMALE BREAST SNOMED Code(s): 805220641 Plan: Mediastinal lymphadenopathy, pleural effusion. -Reviewed with patient and family pleural effusion and other imaging findings are likely the cause for her shortness of breath. Improved after thoracentesis, SOB is starting to return. She may have recurrent effusion until treatment can be started for the underlying cause. Will defer decisions regarding thoracentesis to Pt and Pulmonary -Reviewed with pt and son at bedside CT CAP findings-rt pleural nodulatrity, pl effusion, liver lesions. -S/P thoracentesis-diagnostic purposes and to help improve pt resp status. Cytology pending. -Once cytology results available treatment options and prognosis can be discussed. Pt and son verbalized understanding the plan and agree with the same History of breast cancer -Diagnosis and treatment as stated in HPI -Patient is almost 13 years out from her original diagnosis. Metastasis from that malignancy, at this time would not be common, it is not impossible. More suspicious of a lung primary. Pending cytology on pleural fluid
[2024-04-06 17:37] LABS: Glucose,Whole Blood 114 mg/dL (70-110)
[2024-04-06 19:52] LABS: Glucose,Whole Blood 214 mg/dL (70-110)
[2024-04-06] MEDS: INSULIN GLARGINE (LANTUS) 100 UNIT/ML SYR SQ SCH (19:57)
--- NOTE | 2024-04-06 19:58 | P.PN ---
Subjective Progress Note Date: 04/06/24 Patient is an 83-year-old female with past medical history significant for mild intermittent asthma, ILD, hypertension, hyperlipidemia, diabetes mellitus, hypothyroidism, breast cancer with previous left mastectomy in 2013. Her primary care provider is Dr. Worrell. Pulmonary consult placed for right-sided pleural effusion and abnormal chest CT findings. Presented to emergency department yesterday morning with a chief complaint of progressively worsening shortness of breath for approximately 1 week. No significant infectious symptoms. Denies fever/chills, chest pain, cough. Did states she was recently treated for a "bad cold" by her PCP approximately 1 month ago with antibiotics. Denies history of heart failure. Does states she has intermittent lower extremity swelling. No notable known current/active malignancies. Does have remote history of breast cancer. Denies any previous pleural effusion or thoracentesis. Denies any anticoagulant use. Chest CTA done in the emergency department did not show any evidence of pulmonary embolism. Did show a large right pleural effusion with associated atelectasis. Scattered nodular areas of pleural thickening. Enlarged lymph nodes throughout the mediastinum, including a right paratracheal lymph node measuring up to 2 cm and a right periaortic lymph node measuring 1.2 cm. Findings that are suspicious for malignancy until proven otherwise. CBC: WBC count 10.4, hemoglobin 16.5, platelets 317. CMP: Sodium 140, potassium 4.2, chloride 99, serum bicarb 30, BUN 18, creatinine 0.95, glucose 86. LFTs unremarkable. Troponin less than 0.012. Viral screen negative for influenza, RSV, COVID. Vital signs: Temperature 98 F, heart rate 81 bpm, blood pressure 117/72 mmHg, nontachypneic, SpO2 reading 97% on 3 L/min nasal cannula. I personally reviewed the CAT scan of the chest. There is abnormality and nodularity along the right pleura. There is a moderate-sized right-sided pleural effusion along with compressive atelectatic changes right lung base. The patient also has right paratracheal lymphadenopathy. Patient has been losing weight. This presentation along with unilateral pleural effusion is suspicious for malignancy. CEA level is elevated. Last colonoscopy was done 2 years ago. on today's evaluation of 04/04/2023, the patient is postthoracentesis. Pleural fluid and exudate based on LDH criteria. The patient is currently on room air oxygen with a pulse ox of 94%. Feels less short of breath. The white cell count is 15 with a hemoglobin of 15.9 and platelet count of 300. BUN 23 with a creatinine of 0.9. LFTs are essentially within normal limits. The tumor markers showed a normal CA 15-3, normal CA 19-9, and normal CA 27-29. CEA level was elevated. A follow-up CAT scan of the chest abdomen and pelvis was also done and it shows persistent pleural-based nodular densities involving the right lung and decrease in the right-sided pleural effusion. There is right mid and right lower lobe interstitial and airspace consolidative densities and multiple ill-defined hypodensities within the liver and persistent hilar and mediastinal lymphadenopathy. No obvious bony metastases. On 02/02/2025, the patient is being seen for a follow-up. Doing much better following the thoracentesis. Seems to be less short of breath. The pleural fluid cytology still pending for now. The patient denies having any other specific complaints. Resting comfortably in bed. Medications are essentially unchanged. On 04/06/2024, the patient is comfortable. Preliminary fluid analysis from the right-sided pleural effusion is consistent with non-small cell lung cancer, awaiting further immunostaining's. Meanwhile, the patient is calm and comfortable on 2 L of oxygen by nasal cannula. Denies of any specific complaint s. White cell count 11 hemoglobin 14.9, BUN 23 with a creatinine 0.8 and sodium was 134. LFTs are normal. No chest pain. Objective - Vital Signs Vital signs: Vital Signs Temp 98.5 F 04/06/24 19:20 Pulse 93 04/06/24 19:20 Resp 18 04/06/24 19:20 BP 125/66 04/06/24 19:20 Pulse Ox 96 04/06/24 19:20 FiO2 Intake & Output 04/06/24 04/06/24 04/07/24 06:59 18:59 06:59 Other: Voiding Method Toilet Toilet # Voids 2 2 - Exam GENERAL EXAM: Alert, 83-year-old well-nourished female, comfortable in no apparent distress. Patient is on room air oxygen HEAD: Normocephalic and atraumatic EYES: Normal reaction of pupils, equal size. NOSE: Clear with pink turbinates. THROAT: No erythema or exudates. NECK: No masses, no JVD. CHEST: No chest wall deformity. LUNGS: Equal air entry with diminished right basilar lung sounds. No crackles, wheezes, rhonchi. No conversational dyspnea or accessory muscle use.. CVS: S1 and S2 normal with no audible murmur, regular rhythm. No extra heart sounds ABDOMEN: No hepatosplenomegaly, active bowel sounds, no guarding or rigidity. SPINE: No scoliosis or deformity SKIN: No rashes CENTRAL NERVOUS SYSTEM: No focal deficits, tone is normal in all 4 extremities. EXTREMITIES: There is no peripheral edema, clubbing, or cyanosis. Peripheral pulses are intact. - Labs CBC & Chem 7: 04/06/24 06:36 04/06/24 06:36 Labs: Abnormal Lab Results - Last 24 Hours (Table) 04/06/24 04/06/24 04/06/24 Range/Units 06:36 06:36 12:18 WBC 11.6 H (3.8-10.6) k/uL Sodium 134 L (137-145) mmol/L Chloride 95 L (98-107) mmol/L Carbon Dioxide 33 H (22-30) mmol/L BUN 23 H (7-17) mg/dL Glucose 101 H (74-99) mg/dL POC Glucose (mg/dL) 116 H (70-110) mg/dL AST 37 H (14-36) U/L 04/06/24 04/06/24 Range/Units 17:39 19:51 WBC (3.8-10.6) k/uL Sodium (137-145) mmol/L Chloride (98-107) mmol/L Carbon Dioxide (22-30) mmol/L BUN (7-17) mg/dL Glucose (74-99) mg/dL POC Glucose (mg/dL) 114 H 214 H (70-110) mg/dL AST (14-36) U/L Microbiology - Last 24 Hours (Table) 04/03/24 16:46 Gram Stain - Preliminary Pleural Fluid Body Fluid Culture - Preliminary 04/03/24 16:46 Anaerobic Culture - Preliminary Pleural Fluid Assessment and Plan Plan: Large right-sided pleural effusion, nodular irregularities of the right pleural, and mediastinal lymphadenopathy; the possibility of malignancy should be excluded. In fact, I am highly suspicious for malignancy as the patient has pleural irregularities on the right and the patient has an unexplained unilateral right-sided pleural effusion. CEA level is also elevated which is a nonspecific finding although it can be consistent with lung cancer in addition. The patient also has right paratracheal lymphadenopathy. I performed a bedside thoracentesis on this patient had a total of 1.8 L of pleural fluid was aspirated. The pleural fluid will be sent for cytology and chemical analysis. The pleural fluid is an exudate. Cytology still pending for now. Repeat CAT scan of the chest abdomen and pelvis shows pleural irregularities on the right, mediastinal lymphadenopathy and suspicious hepatic lesions. Consider selin gnancy. Acute shortness of breath, secondary to above Acute hypoxemic respiratory failure, currently on room air oxygen History of mild intermittent bronchial asthma, stable History of ILD Hypertension History of ascending thoracic aortic aneurysm History of hyperlipidemia Diabetes mellitus, insulin-dependent History of hypothyroidism, with previous thyroidectomy History of breast cancer with previous left mastectomy in 2013 Remote history of tobacco use Plan: Clinically stable and less short of breath following thoracentesis Thoracentesis was performed with a total of 1.8 L of pleural fluid aspirated. The fluid is nonbloody. Tumor markers are negative except for CEA CAT scan of the chest abdomen and pelvis was noted Awaiting pleural fluid cytology, preliminary findings are consistent with non- small cell lung cancer. Awaiting final pathology report from pathology. Arrange home O2 Oncology is on the case Consider endobronchial ultrasound and biopsy of the right paratracheal lymph node if there is no tissue diagnosis established from the pleural fluid.
[2024-04-07 01:47] VITALS: RESP 16
[2024-04-07 05:37] LABS: Glucose,Whole Blood 104 mg/dL (70-110)
--- NOTE | 2024-04-07 06:28 | P.PN ---
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 and mild intermittent asthma patient presented to the emergency department at [facility] yesterday with increased shortness of breath associated with increased coughing no phlegm production, initially had a chest x-ray that showed evidence of right-sided pleural effusion, but because of her D-dimer was quite elevated, patient underwent CT angiography of the chest that was negative for pulmonary embolism but did show evidence of a large pleural effusion with mediastinal lymphadenopathy she was admitted to the hospital for evaluation by pulmonary medicine as well as by oncology. Patient will need to have a thoracentesis for therapeutic and diagnostic purposes. 04/04: Patient is sitting up at the edge of the bed, did have right thoracentesis yesterday by fluid appears to be exudative, cytology still pending the time of dictation, patient is scheduled to go for a CT scan of the chest abdomen and pelvis this afternoon for further evaluation of possible lung cancer with metastatic disease, we will continue with current treatment plan at this point in time, continue to wean the oxygen off, patient may need to go home with home oxygen at this time, I will follow-up with the patient very closely, prognosis continues to be guarded, pulmonary medicine as well as a pathology oncology are following. 04/05: Patient is sitting at the edge of the bed, she is currently on 1 L nasal cannula, she is complaining of a rash at her mastectomy site on the left that appears to be contact dermatitis from using Neosporin, I will start the patient on triamcinolone cream to be applied twice every day, patient's cytology still pending the time of dictation, I asked the patient to stay in the hospital for another 24 hours hopefully we get the cytology tomorrow morning, CT scan of the chest abdomen pelvis was done and that showed evidence of possible malignancy with possible metastatic disease to the liver, I spoke with the patient about the current finding, we will hold off until final decision tomorrow morning she may need to go for more testing to have a tissue diagnosis at this point in time prior to her discharge home I will discuss with pulmonary medicine as well as hematology oncology the elevated CEA suggestive of malignancy likely lung cancer. 04/06: Patient is sitting on the bed side, her son was at the bedside as well as her granddaughter, she was advised that she can be discharged home tomorrow mo rning on home oxygen 2 L nasal cannula, I have discussed the case with the pulmonary service who recommended for the patient to be discharged home and follow-up as an outpatient, fluid cytology still pending at the time of dictation however is leaning toward non-small cell lung cancer, though official reported on the computer yet, elevated CEA probably favor non-small cell lung cancer with metastatic disease possible to the liver, laboratory evaluation are still okay at this point in time, patient can be discharged home tomorrow morning, and follow-up with us as an outpatient, she is to follow-up with her oncologist Dr. Chen and may be if you are not able to obtain any diagnosis from the pleural cytology she may need to have an indwelling bronchial ultrasound biopsy of the paratracheal lymph node to obtain tissue diagnosis. Prognosis is guarded REVIEW OF SYSTEMS: Constitutional: No documented fever, no chills, no night sweats. No weight change. No weakness, fatigue or lethargy. No daytime sleepiness. EENT: No headache. No blurred vision or double vision, no loss of vision. No loss of Hearing, no ringing in the ears, no dizziness. No nasal drainage or congestion. No epistaxis. No sore throat. Lungs: No shortness of breath, no cough, no sputum production. No wheezing. Reports dyspnea with activity. Cardiovascular: No chest pain, no lower extremity edema. No palpitations. No paroxysmal nocturnal dyspnea. No orthopnea. No lightheadedness or dizziness. No syncopal episodes. Abdominal: Reports abdominal pain. No nausea, vomiting. No diarrhea. No constipation. No bloody or tarry stools reports loss of appetite. Genitourinary: No dysuria, increased frequency, urgency. No urinary retention. Musculoskeletal: No myalgias. No muscle weakness, no gait dysfunction, no frequent falls. No back pain. No neck pain. Integumentary: No wounds, no lesions. No rash or pruritus. No unusual bruising. No change in hair or nails. Neurologic: No aphasia. No facial droop. No change in mentation. No head injury. No headache. No paralysis. No paresthesia. Psychiatric: No depression. No anxiety. No mood swings. Endocrine: No abnormal blood sugars. No weight change. PHYSICAL EXAMINATION: General: 83-year-old female laying down in bed in no apparent distress. HEENT: Head is atraumatic, normocephalic, pupils were equal round reactive to light and recommendation, extraocular muscle movement were intact, sclera nonicteric, conjunctivae were pale, mucous membranes of the mouth are somewhat dry. Neck: Supple, no JVP, normal carotid upstroke bilaterally, no lymphadenopathy. Chest: Decreased breath sounds at the bases, decreased tactile fremitus on the right lower lobe few rhonchi, no expiratory wheezes, no chest wall tenderness, no intercostal retractions. Heart: First heart sound is normal, second heart sounds normal there is systolic ejection murmur 2 over systolic in the left sternal border. Abdomen: Soft, nontender, nondistended, positive bowel sounds. Extremities: There is no edema no calf tenderness DP +2 bilaterally. Neurologic examination: Patient is awake alert and oriented x3, cranial nerves II-12 appear grossly intact, muscle power were 5 out of 5 in upper extremities and 5 out of 5 in bilateral lower extremities, deep tendon reflexes normal bilaterally. ASSESSMENT AND PLAN: 1. Acute hypoxemic respiratory insufficiency due to a large right-sided pleural effusion with mediastinal lymphadenopathy and right pleural nodular lesions rule out malignancy status post right thoracentesis that yielded exudative fluid cytology still pending at time of dictation, CT scan of the chest abdomen pelvis is suggestive of possible lung malignancy with metastatic disease to the liver, patient will likely require a tissue diagnosis will discuss with pulmonary medicine as well as hematology oncology, maybe she should do it while she is in the hospital versus follow-up as an outpatient. 2. Hypertension and hypertensive cardiovascular disease. Continue metoprolol 12.5 mg orally twice every day, losartan 100 mg orally once every day, hydrochlorothiazide 12.5 mg once every day, and amlodipine 5 mg orally twice every day, monitor the patient blood pressure very closely. 3. Mixed hyperlipidemia. Continue atorvastatin 20 mg once every day, monitor lipid panel, keep LDL 55-70. 4. Diabetes mellitus type 2.. Continue patient on Levemir 45 units at bedtime along with a sliding scale insulin, continue Farxiga 10 mg orally once every day, check blood glucose before each meal and bedtime. 5. Diabetic polyneuropathy. Continue gabapentin 800 mg orally 3 times every day. 6. Hypothyroidism. Continue levothyroxine 100 mcg orally once every day. 7. History of gout. Continue allopurinol 100 mg orally once every day. 8 vitamin D deficiency. Continue vitamin D supplements. 9. Osteoporosis. Follow-up as an outpatient. 10. 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 Continue hydrocodone. 11. DVT prophylaxis. on heparin 5000 units subcutaneously every 8 hours. 12. GI prophylaxis. Continue Protonix 40 mg orally once every day. 13. Contact dermatitis to the left mastectomy site continue triamcinolone cream to apply twice every day. 14. Prognosis continues to be guarded. 15. Home tomorrow morning on home oxygen 2 L nasal cannula Objective - Vital Signs Vital signs: Vital Signs Temp 97.7 F 04/06/24 01:36 Pulse 92 04/06/24 01:36 Resp 17 04/06/24 01:36 BP 126/63 04/06/24 01:36 Pulse Ox 93 L 04/06/24 01:36 FiO2 Intake & Output 04/05/24 04/05/24 04/06/24 06:59 18:59 06:59 Intake Total 380 Balance 380 Intake: Oral 380 Other: Voiding Method Toilet Toilet Toilet # Voids 3 3 2 - Labs CBC & Chem 7: 04/06/24 06:36 04/06/24 06:36 Labs: Abnormal Lab Results - Last 24 Hours (Table) 04/05/24 04/05/24 04/05/24 Range/Units 05:18 05:18 17:35 WBC 10.26 H (4.50-10.00) X 10*3/uL Immature Gran # 0.09 H (0.00-0.04) X 10*3/uL Eosinophils # 0.74 H (0.04-0.35) X 10*3/uL Basophils # 0.18 H (0.00-0.10) X 10*3/uL POC Glucose (mg/dL) 134 H (70-110) mg/dL Calcium 8.4 L (8.7-10.3) mg/dL Total Protein 6.1 L (6.2-8.2) g/dL Albumin 3.5 L (3.8-4.9) g/dL Albumin/Globulin Ratio 1.35 L (1.60-3.17) Ratio 04/05/24 Range/Units 19:19 WBC (4.50-10.00) X 10*3/uL Immature Gran # (0.00-0.04) X 10*3/uL Eosinophils # (0.04-0.35) X 10*3/uL Basophils # (0.00-0.10) X 10*3/uL POC Glucose (mg/dL) 160 H (70-110) mg/dL Calcium (8.7-10.3) mg/dL Total Protein (6.2-8.2) g/dL Albumin (3.8-4.9) g/dL Albumin/Globulin Ratio (1.60-3.17) Ratio Microbiology - Last 24 Hours (Table) 04/03/24 16:46 Anaerobic Culture - Preliminary Pleural Fluid 04/03/24 16:46 Gram Stain - Preliminary Pleural Fluid Body Fluid Culture - Preliminary
[2024-04-07 07:44] VITALS: BP 126/71; PULSE 77; TEMP 98.1
[2024-04-07] MEDS ORDERED: MAGNESIUM HYDROXIDE 2,400 MG/30 ML CUP PO PRN (08:37)
[2024-04-07] MEDS: SENNOSIDES-DOCUSATE SODIUM 1 EACH TAB PO SCH (10:32)
--- NOTE | 2024-04-08 05:22 | P.DS ---
Providers Date of admission: 04/02/24 17:38 Expected date of discharge: 04/07/24 Attending physician: Felix Worrell Consults: 04/02/24 15:44 Consult Physician Routine Consulting Provider: Doug Greene Consult Reason/Comments: pleural effusion Do you want consulting provider notified?: Yes 04/02/24 15:46 Consult Physician Routine Consulting Provider: Wilmer Cardona Consult Reason/Comments: pleural effusion, mediastinal lymphadenopathy Do you want consulting provider notified?: Yes Primary care physician: Felix Worrell Hospital Course: HISTORY OF PRESENT ILLNESS: This is an 83-year-old female with a previous medical history significant for hypertension and hypertensive cardiovascular disease, hyperlipidemia, diabetes mellitus type 2, hypothyroidism, idiopathic gout, osteoporosis, vitamin D deficiency, diabetes mellitus type 2 with diabetic polyneuropathy, malignant neoplasm of the left breast status post left mastectomy 2012 has been under the care of hematology oncology on a regular basis, 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 and mild intermittent asthma patient presented to the emergency department at [facility] yesterday with increased shortness of breath associated with increased coughing no phlegm production, initially had a chest x-ray that showed evidence of right-sided pleural effusion, but because of her D-dimer was quite elevated, patient underwent CT angiography of the chest that was negative for pulmonary embolism but did show evidence of a large pleural effusion with mediastinal lymphadenopathy she was admitted to the hospital for evaluation by pulmonary medicine as well as by oncology. Patient will need to have a thoracentesis for therapeutic and diagnostic purposes. 04/04: Patient is sitting up at the edge of the bed, did have right thoracentesis yesterday by fluid appears to be exudative, cytology still pending the time of dictation, patient is scheduled to go for a CT scan of the chest abdomen and pelvis this afternoon for further evaluation of possible lung cancer with metastatic disease, we will continue with current treatment plan at this point in time, continue to wean the oxygen off, patient may need to go home with home oxygen at this time, I will follow-up with the patient very closely, prognosis continues to be guarded, pulmonary medicine as well as a pathology oncology are following. 04/05: Patient is sitting at the edge of the bed, she is currently on 1 L nasal cannula, she is complaining of a rash at her mastectomy site on the left that appears to be contact dermatitis from using Neosporin, I will start the patient on triamcinolone cream to be applied twice every day, patient's cytology still pending the time of dictation, I asked the patient to stay in the hospital for another 24 hours hopefully we get the cytology tomorrow morning, CT scan of the chest abdomen pelvis was done and that showed evidence of possible malignancy w ith possible metastatic disease to the liver, I spoke with the patient about the current finding, we will hold off until final decision tomorrow morning she may need to go for more testing to have a tissue diagnosis at this point in time prior to her discharge home I will discuss with pulmonary medicine as well as hematology oncology the elevated CEA suggestive of malignancy likely lung cancer. 04/06: Patient is sitting on the bed side, her son was at the bedside as well as her granddaughter, she was advised that she can be discharged home tomorrow morning on home oxygen 2 L nasal cannula, I have discussed the case with the pulmonary service who recommended for the patient to be discharged home and follow-up as an outpatient, fluid cytology still pending at the time of dictation however is leaning toward non-small cell lung cancer, though official reported on the computer yet, elevated CEA probably favor non-small cell lung cancer with metastatic disease possible to the liver, laboratory evaluation are still okay at this point in time, patient can be discharged home tomorrow morning, and follow-up with us as an outpatient, she is to follow-up with her oncologist Dr. Chen and may be if you are not able to obtain any diagnosis from the pleural cytology she may need to have an indwelling bronchial ultrasound biopsy of the paratracheal lymph node to obtain tissue diagnosis. Pr ognosis is guarded 04/07: Patient will have her oxygen delivered to her home today she will be on 2 L nasal cannula, as her oxygenation does drop while she is ambulating, she is to follow-up with me as an outpatient on Wednesday, she will need to follow-up with oncology as well as pulmonary medicine as indicated. Final diagnosis is not established but it is leading to her non-small cell lung cancer that is stage IV. Discharge diagnoses: 1. Acute hypoxemic respiratory insufficiency due to a large right-sided pleural effusion with mediastinal lymphadenopathy and right pleural nodular lesions rule out malignancy status post right thoracentesis that yielded exudative fluid cytology still pending at time of dictation, CT scan of the chest abdomen pelvis is suggestive of possible lung malignancy with metastatic disease to the liver, ikely non-small cell cancer stage IV. 2. Hypertension and hypertensive cardiovascular disease. 3. Mixed hyperlipidemia. 4. Diabetes mellitus type 2.. 5. Diabetic polyneuropathy. 6. Hypothyroidism. 7. History of gout. 8. vitamin D deficiency. 9. Osteoporosis. 10. 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 11. Contact dermatitis to the left mastectomy site Patient Condition at Discharge: Serious Plan - Discharge Summary Discharge Rx Participant: No New Discharge Prescriptions: New Triamcinolone 0.1% Cream [Kenalog 0.1% Cream] 1 applic TOPICAL BID each Continue allopurinoL [Allopurinol] 100 mg PO DAILY Levothyroxine Sodium [Synthroid] 100 mcg PO DAILY Gabapentin 800 mg PO TID Cyanocobalamin [Vitamin B-12] 500 mcg PO W/LUNCH hydroCHLOROthiazide 12.5 mg PO DAILY Hydrocodone/Apap 7.5-300mg 1 tab PO TID Rosuvastatin [Crestor] 10 mg PO HS Aspirin EC [Ecotrin Low Dose] 81 mg PO W/LUNCH Multivit-Min/Iron/Folic/Lutein [Centrum Silver Women Tablet] 1 tab PO W/LUNCH Co Q-10 100mg 100 mg PO HS amLODIPine [Norvasc] 5 mg PO BID Metoprolol Tartrate [Lopressor] 12.5 mg PO BID Losartan Potassium 100 mg PO DAILY Insulin Glargine,Hum.rec.anlog [Touimani [place] Solostar] 45 units SQ HS Albuterol Inhaler [Ventolin Hfa Inhaler] 1 puff INHALATION RT-Q4H PRN PRN Reason: Shortness Of Breath Discharge Medication List Levothyroxine Sodium [Synthroid] 100 mcg PO DAILY 12/07/13 [History] allopurinoL [Allopurinol] 100 mg PO DAILY 12/07/13 [History] Aspirin EC [Ecotrin Low Dose] 81 mg PO W/LUNCH 02/26/21 [History] Gabapentin 800 mg PO TID 02/26/21 [History] Rosuvastatin [Crestor] 10 mg PO HS 02/26/21 [History] Albuterol Inhaler [Ventolin Hfa Inhaler] 1 puff INHALATION RT-Q4H PRN 02/16/25 [History] Co Q-10 100mg 100 mg PO HS 04/02/24 [History] Cyanocobalamin [Vitamin B-12] 500 mcg PO W/LUNCH 04/02/24 [History] Hydrocodone/Apap 7.5-300mg 1 tab PO TID 04/02/24 [History] Insulin Glargine,Hum.rec.anlog [Toujeo Max Solostar] 45 units SQ HS 04/02/24 [History] Losartan Potassium 100 mg PO DAILY 04/02/24 [History] Metoprolol Tartrate [Lopressor] 12.5 mg PO BID 04/02/24 [History] Multivit-Min/Iron/Folic/Lutein [Centrum Silver Women Tablet] 1 tab PO W/LUNCH 04/02/24 [History] amLODIPine [Norvasc] 5 mg PO BID 04/02/24 [History] hydroCHLOROthiazide 12.5 mg PO DAILY 04/02/24 [History] Triamcinolone 0.1% Cream [Kenalog 0.1% Cream] 1 applic TOPICAL BID each 04/07/24 [Rx] Follow up Appointment(s)/Referral(s): Felix Worrell MD [Primary Care Provider] - 1-2 days [facility] [NON-STAFF] - As Needed (HOME O2) Wilmer Cardona MD [STAFF PHYSICIAN] - 1 Week Patient Instructions/Handouts: Pleural Effusion (DC) Discharge Disposition: HOME WITH HOME HEALTH SERVICES
--- NOTE | 2024-04-10 22:09 | CDI ---
Documentation Clarification Form Date: 04/10/2024 From: ZAINAB Anton Admit Date: 04/02/2024 05:38:00 PM Patient Name: Sania Samson I Visit Number: [id number] Discharge Date: 04/07/2024 11:41:00 AM ATTENTION: The Clinical Documentation Specialists (CDI) and [facility] Coding Staff appreciate your assistance in clarifying documentation. Please respond to the clarification below the line at the bottom and electronically sign. The CDI & [facility] Coding staff will review the response and follow-up if needed. Please note: Queries are made part of the Legal Health Record. If you have any questions, please contact the author of this message via ITS. Doctor/Provider: Felix Worrell The final diagnosis of the pathology report states "The immunostaining pattern is consistent with metastatic small cell lung carcinoma". Coding guidelines do not allow coding professionals to code based on pathology results; therefore, clarification is requested. History/risk factors: Chief Complaint: Large sided right pleural effusion with mediastinal lymphadenopathy. Clinical Indicators: Acute hypoxic respiratory insufficiency due to a large right sided pleural effusion. Patient was admitted to telemetry unit, pulmonary consultation was obtained for thoracentesis for diagnostic and therapeutic purposes. Treatment: Thoracentesis, oxygen support, nebulizer therapy Please clarify if you agree with the pathology report diagnosis of metastatic small cell lung carcinoma of the pleural effusion: [ x ] Yes [ ] No [ ] Other (please specify) [ ] Unable to determine MTDD
== END 2024-04-07 11:41 | disposition home health service (06) | DRG 180 ==
LOC: EC 10:40 → 6NMEDSUR 17:37 → OBSVTOIN 17:38 → 6NMEDSUR 20:01
PROVIDERS: ADMIT Internal Medicine; ATTEND Internal Medicine
PROC: 0W993ZX Drainage of Right Pleural Cavity, Percutaneous Approach, Diagnostic (ICD-10-PCS; principal; 2024-04-03)
DX: C34.90 Malignant neoplasm of unspecified part of unspecified bronchus or lung (principal); J96.01 Acute respiratory failure with hypoxia; J91.0 Malignant pleural effusion; E11.42 Type 2 diabetes mellitus with diabetic polyneuropathy; I11.9 Hypertensive heart disease without heart failure; J45.20 Mild intermittent asthma, uncomplicated; E89.0 Postprocedural hypothyroidism; Z79.4 Long term (current) use of insulin; E55.9 Vitamin D deficiency, unspecified; M81.0 Age-related osteoporosis without current pathological fracture; R59.1 Generalized enlarged lymph nodes; M10.00 Idiopathic gout, unspecified site; M47.816 Spondylosis without myelopathy or radiculopathy, lumbar region; L25.9 Unspecified contact dermatitis, unspecified cause; E78.2 Mixed hyperlipidemia; Z79.82 Long term (current) use of aspirin; Z79.890 Hormone replacement therapy; Z79.899 Other long term (current) drug therapy; Z90.12 Acquired absence of left breast and nipple; Z87.891 Personal history of nicotine dependence; Z85.3 Personal history of malignant neoplasm of breast
CPT/HCPCS: 36415; 71045; 71046; 71260; 71275; 74177; 76604; 80053; 82378; 82945; 83615; 84157; 84484; 85025; 85027; 85379; 85610; 85730; 86300; 86301; 87070; 87075; 87205; 87636; 88108; 88305; 88341; 88342; 89050; 93005; 99285

== ENCOUNTER → 2024-04-13 | Outpatient (CLI) | payer MEDICARE ==
--- NOTE | 2024-04-13 08:52 | MR ---
EXAMINATION TYPE: MR brain wo/w con DATE OF EXAM: 04/13/2024 8:38 AM COMPARISON: None. CLINICAL INDICATION: Female, 83 years old with history of C34.91 lung ca, Lung CA, Prior Aneurysm Cli pping TECHNIQUE: Multiplanar, multiecho imaging on a 3.0 Jannet magnet is performed through the brain. Stud y is performed within 24 hours of arrival to the hospital.Multiplanar, multiecho imaging on a 3.0 Fallon la magnet is performed through the knee. IV Contrast: 8 mL Gadobutrol (None, if empty) FINDINGS: The craniovertebral junction is normal. The pituitary is nonvisualized due to magnetic susceptibilit y artifact from prior clipping. This also distorts portions of the frontal lobes and brainstem.. Diffusion-weighted imaging is performed. No abnormal hyperintensity is present to suggest an acute i ntracranial infarct or acute ischemic change. There are multiple scattered punctate areas of hyperintensity on T2 and Inversion Recovery weighted s equences which are non-specific but can be related to microvascular ischemic changes. Differential di agnosis could include migraine headaches, vasculitis, Lyme disease, multiple sclerosis. Ventricles and sulci are appropriate for the patient age. No abnormal enhancement. IMPRESSION: 1. Scattered periventricular white matter changes which are nonspecific [facility], , 04/13/2024 8:50 AM
== END | disposition home or self-care (01) ==
LOC: RADMRIMAIN 07:23
PROVIDERS: ATTEND Internal Medicine Hematology & Oncology
DX: C34.91 Malignant neoplasm of unspecified part of right bronchus or lung (principal); R90.82 White matter disease, unspecified
CPT/HCPCS: 70553; A9585

== ENCOUNTER 2024-04-19 07:40 | Day surgery (SDC) | payer MEDICARE ==
[~2024-04-19 07:40] MED LIST: HYDROmorphone 0.5 MG/0.5 ML SYRINGE IVP PRN; LIDOCAINE 1% (10MG/ML) FOR IV START INTRADERMA PRN; Pre Op ABX Message 1 EACH MISC MISCELLANE ONE
[2024-04-19 08:12] VITALS: TEMP 97.6
[2024-04-19 08:18] LABS: Glucose,Whole Blood 121 mg/dL (70-110)
[2024-04-19] MEDS: LACTATED RINGERS 1,000 ML IV SCH (08:18)
[2024-04-19] MEDS: IV FLUID CONTINUATION 1,000 ML IV ONE (08:18)
[2024-04-19] MEDS: ONDANSETRON 4 MG/2 ML VIAL IVP PRN (08:21)
[2024-04-19] MEDS ORDERED: MIDAZOLAM 2 MG/2 ML VIAL ONE (08:25)
[2024-04-19] MEDS ORDERED: fentaNYL (PF) 50 MCG/ML 2 ML AMP ONE (08:25)
[2024-04-19] MEDS ORDERED: KETAMINE HCL IN 0.9 % NACL 50 MG/5 ML SYRINGE ONE (08:25)
[2024-04-19] MEDS ORDERED: diphenhydrAMINE 50 MG/ML 1 ML VIAL ONE (08:25)
[2024-04-19] MEDS: SODIUM CHLORIDE 0.9% 100 ML with ceFAZolin 2,000 MG IV ONE (08:37)
[2024-04-19] MEDS: BUPIVACAINE (PF) 0.25% 30 ML VIAL SQ ONE ×2 (08:44)
--- NOTE | 2024-04-19 09:17 | FL ---
EXAMINATION TYPE: FL guided central line placemt DATE OF EXAM: 04/19/2024 9:13 AM COMPARISON: Pre Operative Images if available both CT/MRI or plain film CLINICAL INDICATION: Female, 83 years old with history of Port-A-Cath Insertion; TECHNIQUE: FL guided central line placemt, multiple fluoroscopic images provided for procedure. DAP: 1.6704 mGym2 Gycm2 uGym2 cGycm2 or equivalent. FINDINGS: Fluoroscopic images during catheter placement which. Mild degeneration changes of the spine. No evide nce for pneumothorax. IMPRESSION: 1. No evidence for intraoperative complication. 2. Please see the operative/procedural note for further details. [facility], , 04/19/2024 9:15 AM
[2024-04-19 09:20] VITALS: RESP 16
[2024-04-19 09:50] LABS: Glucose,Whole Blood 94 mg/dL (70-110)
[2024-04-19 10:08] VITALS: BP 112/71; PULSE 85
--- NOTE | 2024-04-19 10:09 | XR ---
EXAMINATION TYPE: XR chest 1V portable DATE OF EXAM: 04/19/2024 9:59 AM COMPARISON: Chest radiographs from 04/03/2024. CLINICAL INDICATION: Female, 83 years old with history of POST MEDIPORT INSERTION TECHNIQUE: XR chest 1V portable Frontal view of the chest. FINDINGS: Lungs/Pleura: No evidence of focal consolidation or pneumothorax. Large right pleural effusion. Blunt ing of left costophrenic angle. Pulmonary vascularity: Unremarkable. Heart/mediastinum: Cardiomediastinal silhouette is partially obscured due to overlying and adjacent o pacities. Musculoskeletal: No acute osseous pathology. Left chest wall [id number]-[id number] terminates at the brachiocephalic superior vena cava junction. IMPRESSION: 1. Moderate to large right pleural effusion with associated atelectasis. 2. Cardiomegaly. 3. [id number]-Hoca with tip terminating in the brachiocephalic vein superior vena cava confluence. 4. Blunting of the left costophrenic angle suggestive of small pleural effusion. [facility], , 04/19/2024 10:07 AM
--- NOTE | 2024-04-19 10:34 | P.OP ---
Date of Procedure: 04/19/24 Preoperative Diagnosis: Lung cancer Postoperative Diagnosis: Lung cancer Procedure(s) Performed: Mediport placement with fluoroscopic guidance Anesthesia: MAC Surgeon: Macie Herrera Pathology: none sent Condition: stable Disposition: same day Indications for Procedure: 83-year-old female presents today for Mediport placement. She has recent diagnosis of lung cancer and after consultation with her oncologist, recommendation has been made for chemotherapy induction. Risks, benefits and alternatives were provided to the patient. All questions were answered. Operative Findings: Appropriate flush and withdrawal from Mediport site Description of Procedure: Patient was brought to the operating suite and placed in supine position on the operating table. Sedation was provided by anesthesia and the patient underwent endotracheal intubation. Patient was then prepped and draped in regular sterile fashion. Local anesthetic was administered and the left subclavian vein was entered on first attempt. Guidewire was then placed and location was confirmed under fluoroscopic guidance. At this point local anesthetic was administered to create the pocket for the port. Incision was made and dissection was carried to the prepectoralis fascia. Dissection was carried to free up space for the port. At this point a small incision was made at the guidewire insertion site and a tunnel was created between this guidewire site and the pocket and catheter was placed. Dilator sheath was then placed over the guidewire under fluoroscopic guidance and catheter was then placed. Catheter was noted to be in appropriate position and was connected to the port and port was placed in the pocket. Appropriate flush and withdrawal was noted from the port site. The port was then secured to the prepectoralis fascia in 2 separate locations. Fluoroscopic guidance confirmed location with no kinks in the catheter. Heparin lock was placed. The wound was then closed in layers with 3-0 Vicryl and 4-0 Vicryl subcuticular suture. Sterile dressing was applied. The patient was then taken to postanesthesia care unit in stable condition with pending chest x-ray.
== END 2024-04-19 10:35 | disposition home or self-care (01) ==
LOC: OR 07:40
PROVIDERS: ATTEND Surgery
DX: C34.91 Malignant neoplasm of unspecified part of right bronchus or lung (principal); I10 Essential (primary) hypertension; E78.5 Hyperlipidemia, unspecified; E11.9 Type 2 diabetes mellitus without complications; E89.0 Postprocedural hypothyroidism; M81.8 Other osteoporosis without current pathological fracture; G60.0 Hereditary motor and sensory neuropathy; M25.529 Pain in unspecified elbow; I89.0 Lymphedema, not elsewhere classified; R53.81 Other malaise; J44.9 Chronic obstructive pulmonary disease, unspecified; Z85.3 Personal history of malignant neoplasm of breast; Z79.899 Other long term (current) drug therapy; Z79.890 Hormone replacement therapy; Z98.41 Cataract extraction status, right eye; Z90.12 Acquired absence of left breast and nipple; Z98.890 Other specified postprocedural states; Z87.891 Personal history of nicotine dependence
CPT/HCPCS: 77001; 71045; 36561; C1788; J2250; J1200; J2405; J0690; J3010; J1642; J0665

== ENCOUNTER 2024-04-20 13:57 | Day surgery (SDC) | payer MEDICARE ==
[2024-04-19 14:24] VITALS: BMI 31.6
[2024-04-20 14:32] VITALS: TEMP 97.4
[2024-04-20 14:43] LABS: Glucose,Whole Blood 171 mg/dL (70-110)
--- NOTE | 2024-04-20 15:11 | P.PCN ---
Date of Procedure: 04/20/24 Operative Findings: Preoperative Diagnosis: Pleural effusion, right Postoperative Diagnosis: Same Procedure(s) Performed: Thoracentesis, right Anesthesia: local Surgeon: Sera Bone Estimated Blood Loss (ml): 0 Pathology: other Condition: stable Disposition: floor Operative Findings: A time out was performed and the chest x-ray was reviewed, the appropriate side was confirmed and marked. My hands were washed immediately prior to the procedure. I wore a surgical cap, mask with protective eyewear, sterile gown and sterile gloves throughout the procedure. The patient was prepped and draped in a sterile manner using chlorhexidine scrub after the appropriate level was percussed and confirmed by ultrasound. 1% lidocaine was used to anesthesize the skin, subcutaneous tissue, superior aspect of the rib periosteum and parietal pleura. A finder needle was then introduced over the superior aspect of the rib to locate the pleural fluid; 2colored fluid was aspirated at a depth of approximately 2 cm. A 10-blade scalpel was used to niyah the skin at the insertion site. The Pvee-x-Rahbfmdh needle was then introduced through the skin incision into the pleural space using negative aspiration pressure and the red colometric indicator to confirm appropriate positioning of the needle. The thoracentesis catheter was then threaded without difficulty. 1900 ml of turbid colored fluid was removed without difficulty. The catheter was then removed. No immediate complications were noted during the procedure. A post-procedure chest x-ray is pending at the time of this note. The fluid will be sent for studies. Estimated blood loss is 0cc
[2024-04-20 15:27] VITALS: RESP 18
--- NOTE | 2024-04-20 15:40 | XR ---
EXAMINATION TYPE: XR chest 1V DATE OF EXAM: 04/20/2024 3:34 PM COMPARISON: Chest radiographs from 04/19/2024 TECHNIQUE: XR chest 1V Frontal view of the chest. CLINICAL INDICATION:Female, 83 years old with history of post thoracentesis; FINDINGS: Lungs/Pleura: Decreased small right pleural effusion with right basilar patchy airspace opacities. Ri ght apical pleural thickening. No discrete pneumothorax. Pulmonary vascularity: Unremarkable. Heart/mediastinum: Cardiomediastinal silhouette is enlarged and stable. Atherosclerotic calcificatio ns are seen in the aorta. Musculoskeletal: No acute osseous pathology. Other findings: None Lines/Tubes: Stable left hemithorax Mediport catheter with subclavian approach. Distal tip is at the high SVC. IMPRESSION: Post right thoracentesis without discrete pneumothorax. Decreased now small right pleural effusion wi th right basilar patchy airspace opacities probably representing atelectasis versus infiltrate. [facility], , 04/20/2024 3:37 PM
[2024-04-20 15:57] VITALS: BP 133/77; PULSE 75
== END 2024-04-20 15:59 | disposition home or self-care (01) ==
LOC: ORWHC2ENDO 13:57
PROVIDERS: ATTEND Internal Medicine Critical Care Medicine
DX: J90 Pleural effusion, not elsewhere classified (principal)
CPT/HCPCS: 32555; 71045

== ENCOUNTER 2024-08-03 07:30 | Day surgery (SDC) | payer MEDICARE ==
[2024-08-01 14:35] VITALS: BMI 29.4
[2024-08-03 08:02] LABS: Glucose,Whole Blood 83 mg/dL (70-110)
[2024-08-03 08:11] VITALS: BP 127/90; PULSE 63; RESP 16; TEMP 97.7
[2024-08-03] MEDS ORDERED: ALTEPLASE 2 MG VIAL (CATHFLO) IV STA (09:19)
[2024-08-03] MEDS: IOPAMIDOL-370 100ML BTL IVP ONE (09:21)
[2024-08-03] MEDS: ALTEPLASE 2 MG VIAL (CATHFLO) MISCELLANE ONE (09:36)
--- NOTE | 2024-08-03 09:50 | IR ---
Fluoroscopy INDICATION: Pain FINDINGS: Fluoroscopy time: 3.4 seconds. Total dose area product (DAP) in uGy*m?, mGy*cm? (or similar): 36.3 Images obtained: 45. Images document catheter port evaluation. IMPRESSION: 1. Documentation of fluoroscopy. [facility], , 08/03/2024 9:47 AM
--- NOTE | 2024-08-07 08:46 | P.OP ---
Date of Procedure: 08/03/24 Description of Procedure: Preoperative diagnosis: Malfunctioning port, on chemotherapy Postoperative diagnosis: Same Procedure: Portogram with fluoroscopic interpretation Surgeon: Earline Gary D.O. EBL: Minimal [] IV fluids: [None] Urine output: Not measured [] Drains: [] None Complications: [] None Condition: [] Stable Operative indication and findings: [] Patient is an 84-year-old female with a port undergoing interventions. She has had issues recently with some pain at the port site, typically she has her infusions done in the treatment states he never had issues with it, recently she had 1 flushing here locally which caused some pain. Due to this she had this evaluated and is here today for further evaluation Procedure in detail: Patient taken the special suite placed in supine position. The chest wall is prepped and draped usual sterile fashion. A preprocedural timeout was performed, all parties were in agreement. The port was cannulated. It was mild difficult to aspirate, and flushed freely. Portogram was performed showing a minimal amount of fibrin sheath.. Flushing was performed and subsequently aspiration was easily able to be achieved. Due to the patient's lower platelet count recently there was no tPA instilled only heparinized saline. The port was cannulated and replaced for the patient tolerated procedure well. If there is continued issue with this, she may need to undergo replacement vs fibrin sheath stripping[] Plan - Discharge Summary Discharge Rx Participant: No New Discharge Prescriptions: No Action allopurinoL [Allopurinol] 100 mg PO DAILY Levothyroxine Sodium [Synthroid] 100 mcg PO DAILY Gabapentin 800 mg PO TID Cyanocobalamin [Vitamin B-12] 500 mcg PO W/LUNCH hydroCHLOROthiazide 12.5 mg PO DAILY Empagliflozin [Jardiance] 25 mg PO DAILY oxyCODONE-APAP 7.5-325MG [Percocet 7.5-325 mg] 1 tab PO Q6HR PRN 3 Days #10 tab PRN Reason: Pain Turmeric Root Extract [Turmeric] 500 mg PO QAM Rosuvastatin [Crestor] 10 mg PO HS Aspirin EC [Ecotrin Low Dose] 81 mg PO W/LUNCH Multivit-Min/Iron/Folic/Lutein [Centrum Silver Women Tablet] 1 tab PO W/LUNCH Co Q-10 100mg 100 mg PO HS amLODIPine [Norvasc] 5 mg PO BID Metoprolol Tartrate [Lopressor] 12.5 mg PO BID Losartan Potassium 100 mg PO DAILY Insulin Glargine,Hum.rec.anlog [Toujeo Max Solostar] 45 units SQ HS Albuterol Inhaler [Ventolin Hfa Inhaler] 1 puff INHALATION RT-Q4H PRN PRN Reason: Shortness Of Breath Tums (Unknown Dose) 1 dose PO QAM PRN PRN Reason: acid reflux Discharge Medication List Levothyroxine Sodium [Synthroid] 100 mcg PO DAILY 12/07/13 [History] allopurinoL [Allopurinol] 100 mg PO DAILY 12/07/13 [History] Aspirin EC [Ecotrin Low Dose] 81 mg PO W/LUNCH 02/26/21 [History] Gabapentin 800 mg PO TID 02/26/21 [History] Rosuvastatin [Crestor] 10 mg PO HS 02/26/21 [History] Albuterol Inhaler [Ventolin Hfa Inhaler] 1 puff INHALATION RT-Q4H PRN 04/02/24 [History] Co Q-10 100mg 100 mg PO HS 04/02/24 [History] Cyanocobalamin [Vitamin B-12] 500 mcg PO W/LUNCH 04/02/24 [History] Insulin Glargine,Hum.rec.anlog [Toujeo Max Solostar] 45 units SQ HS 04/02/24 [History] Losartan Potassium 100 mg PO DAILY 04/02/24 [History] Metoprolol Tartrate [Lopressor] 12.5 mg PO BID 04/02/24 [History] Multivit-Min/Iron/Folic/Lutein [Centrum Silver Women Tablet] 1 tab PO W/LUNCH 04/02/24 [History] amLODIPine [Norvasc] 5 mg PO BID 04/02/24 [History] hydroCHLOROthiazide 12.5 mg PO DAILY 04/02/24 [History] Empagliflozin [Jardiance] 25 mg PO DAILY 04/14/24 [History] oxyCODONE-APAP 7.5-325MG [Percocet 7.5-325 mg] 1 tab PO Q6HR PRN 3 Days #10 tab 04/19/24 [Rx] Tums (Unknown Dose) 1 dose PO QAM PRN 08/01/24 [History] Turmeric Root Extract [Turmeric] 500 mg PO QAM 08/01/24 [History] Follow up Appointment(s)/Referral(s): Earline Meier DO [STAFF PHYSICIAN] - As Needed Activity/Diet/Wound Care/Special Instructions: resume home meds and diet. Discharge Disposition: HOME SELF-CARE
== END 2024-08-03 10:00 | disposition home or self-care (01) ==
LOC: CATHCVL 07:30
PROVIDERS: ATTEND Surgery
DX: T82.594A Other mechanical complication of infusion catheter, initial encounter (principal); I10 Essential (primary) hypertension; E78.5 Hyperlipidemia, unspecified; E11.9 Type 2 diabetes mellitus without complications; E03.9 Hypothyroidism, unspecified; M81.0 Age-related osteoporosis without current pathological fracture; Z87.891 Personal history of nicotine dependence; Z79.890 Hormone replacement therapy; Z79.899 Other long term (current) drug therapy; Y83.8 Other surgical procedures as the cause of abnormal reaction of the patient, or of later complication, without mention of misadventure at the time of the procedure
CPT/HCPCS: 36598; 36593; J2997; Q9967

== ENCOUNTER → 2024-08-15 | Outpatient (CLI) | payer MEDICARE ==
--- NOTE | 2024-08-15 16:37 | XR ---
EXAMINATION TYPE: XR chest 2V DATE OF EXAM: 08/15/2024 4:27 PM COMPARISON: Chest radiographs from 06/01/2024 TECHNIQUE: XR chest 2V Frontal and lateral views of the chest. CLINICAL INDICATION:Female, 84 years old with history of R09.89 OTH SYMPTOMS AND SIGNS INVOLVING THE CIRC A; FINDINGS: Lungs/Pleura: No pneumothorax. Small right pleural effusion with bibasilar patchy airspace opacities. Overall similar to prior exam. Pulmonary vascularity: Unremarkable. Heart/mediastinum: Cardiomediastinal silhouette is enlarged and stable. Atherosclerotic calcificatio ns are seen in the aorta. Musculoskeletal: Multiple level degenerative disc disease changes seen throughout the spine. Other findings: None Lines/Tubes: Anterior left chest Mediport catheter distal tip terminating in the high SVC. IMPRESSION: Similar small right pleural effusion with right basilar patchy airspace opacities presenting atelecta sis versus infiltrates. [facility], , 08/15/2024 4:34 PM
== END | disposition home or self-care (01) ==
LOC: RADXRMAIN 16:15
DX: R09.89 Other specified symptoms and signs involving the circulatory and respiratory systems (principal); J90 Pleural effusion, not elsewhere classified
CPT/HCPCS: 71046